=== PATIENT | female | born 1955 | race Caucasian/White ===

== ENCOUNTER → 2018-10-05 12:03 | Outpatient (CLI) | payer OTHER, SELFPAY ==
--- NOTE | 2018-10-05 | DI.MG.S_ITS ---
BILATERAL DIGITAL SCREENING MAMMOGRAM 3D/2D WITH CAD: 10/05/2018 CLINICAL: Routine screening. Family history of breast cancer. Comparison is made to exams dated: 07/24/2017 mammogram, 07/01/2013 mammogram, and 04/25/2007 mammogram - [facility]. There are scattered fibroglandular elements in both breasts. Current study was also evaluated with a Computer Aided Detection (CAD) system. No significant masses, calcifications, or other findings are seen in either breast. There has been no significant interval change. IMPRESSION: NEGATIVE There is no mammographic evidence of malignancy. A 1 year screening mammogram is recommended. This exam was interpreted at Station ID: [id number]. NOTE: For mammograms, a report in lay terms will be sent to the patient. Approximately 15% of breast malignancies will not be visualized mammographically. In the management of a palpable breast mass, a negative mammogram must not discourage biopsy of a clinically suspicious lesion. Electronically Signed By: Brigido manuel/manish:10/07/2018 17:56:22 letter sent: Normal Exam ACR BI-RADS Category 1: Negative 3341F
== END ==
PROVIDERS: PCP Family Medicine; Visit Provider Family Medicine
DX: Z12.31 Encounter for screening mammogram for malignant neoplasm of breast (principal); Z80.3 Family history of malignant neoplasm of breast
CPT/HCPCS: 77063; 77067

== ENCOUNTER → 2020-07-31 11:22 | Outpatient (CLI) | payer OTHER, SELFPAY ==
[2020-07-31 12:20] LABS: Alanine Aminotransferase 13 IU/L (<35); Albumin 4.2 g/dL (3.5-5.0); Albumin Globulin Ratio 1.4 (1.0-2.8); Alkaline Phosphatase 77 U/L (38-126); Aspartate Aminotransferase 24 IU/L (14-36); BUN Creatinine Ratio 20.7 (6-22); Blood Urea Nitrogen 18 mg/dL (7-17); Carbon Dioxide 31 mmol/L (22-32); Chloride 104 mmol/L (98-107); Cholesterol 267 mg/dL (140-199); Estimated Glomerular Filt Rate > 60.0 mL/min (>60); Globulin 2.9 g/dL (1.7-4.1); Glucose 102 mg/dL (80-110); HDL Cholesterol 58 mg/dL (40-60); HEMOLYSIS < 15 (0-50); LDL Cholesterol Calculated 172 mg/dL (<100); Sodium 140 mmol/L (137-145); Total Protein 7.1 g/dL (6.3-8.2); Triglycerides 185 mg/dL (35-150)
[2020-07-31 12:51] LABS: TSH w/ Reflex to FT4 1.95 uIU/mL (0.47-4.68)
== END ==
PROVIDERS: PCP Family Medicine; Referring Provider Family Medicine; Visit Provider Family Medicine
DX: E03.9 Hypothyroidism, unspecified (principal); E78.5 Hyperlipidemia, unspecified
CPT/HCPCS: 36415; 80053; 80061; 84443

== ENCOUNTER → 2020-08-06 14:50 | Outpatient (CLI) | payer OTHER, SELFPAY ==
[2020-08-09 08:24] LABS: Fecal Immunochemical Test Negative (Negative)
== END ==
PROVIDERS: PCP Family Medicine; Referring Provider Family Medicine; Visit Provider Family Medicine
DX: Z12.11 Encounter for screening for malignant neoplasm of colon (principal)
CPT/HCPCS: 82274

== ENCOUNTER → 2020-08-26 11:06 | Outpatient (CLI) | payer OTHER, SELFPAY ==
--- NOTE | 2020-08-26 11:07 | DI.US.S_ITS ---
PROCEDURE: US PELVIC COMPLETE INDICATIONS: Fibroids TECHNIQUE: Real-time scanning was performed of the pelvic organs, with image documentation. Additional endovaginal scanning was necessary due to incomplete visualization of the adnexal and endometrial structures by transabdominal scanning. COMPARISON: None. FINDINGS: Transabdominal scanning: Limited scanning through the kidneys shows no hydronephrosis. No pathologic free abdominal or pelvic fluid. Endovaginal scanning: Uterus: Uterus is normal in size at 6.2 x 7.1 x 11.3 cm. The endometrium measures 6.1 mm in combined thickness. There is a left-sided anterior subserosal fibroid measuring up to 5.4 x 6.6 x 7.5 cm. Ovaries: The right ovary measures 2.1 x 1.7 x 1.9 cm and the left measures 3.4 x 2.4 x 2.2 cm. IMPRESSION: Normal appearing endometrial lining and ovaries. A dominant fibroid is present on the left in the subserosal position measuring up to 5.4 x 6.6 x 7.5 cm. Dictated by: Kam Jang M.D. on 08/26/2020 at 13:09 Approved by: Kam Jang M.D. on 08/26/2020 at 13:11
== END ==
PROVIDERS: PCP Family Medicine; Referring Provider Family Medicine; Visit Provider Family Medicine
DX: D25.2 Subserosal leiomyoma of uterus (principal)
CPT/HCPCS: 76830; 76856

== ENCOUNTER → 2020-09-10 14:58 | Outpatient (CLI) | payer OTHER, SELFPAY ==
--- NOTE | 2020-09-10 14:59 | DI.MG.S_ITS ---
BILATERAL DIGITAL SCREENING MAMMOGRAM 3D/2D WITH CAD: 09/10/2020 CLINICAL: Routine screening. Comparison is made to exams dated: 10/05/2018 mammogram, 07/24/2017 mammogram, and 07/01/2013 mammogram - [facility]. There are scattered fibroglandular elements in both breasts. Current study was also evaluated with a Computer Aided Detection (CAD) system. No significant masses, calcifications, or other findings are seen in either breast. There has been no significant interval change. IMPRESSION: NEGATIVE There is no mammographic evidence of malignancy. A 1 year screening mammogram is recommended. This exam was interpreted at Station ID: [id number]. NOTE: For mammograms, a report in lay terms will be sent to the patient. Approximately 15% of breast malignancies will not be visualized mammographically. In the management of a palpable breast mass, a negative mammogram must not discourage biopsy of a clinically suspicious lesion. Electronically Signed By: Yudy yoon/manish:09/14/2020 16:20:02 letter sent: Normal Exam ACR BI-RADS Category 1: Negative 3341F
== END ==
PROVIDERS: PCP Family Medicine; Referring Provider Family Medicine; Visit Provider Family Medicine
DX: Z12.31 Encounter for screening mammogram for malignant neoplasm of breast (principal)
CPT/HCPCS: 77063; 77067

== ENCOUNTER → 2020-12-09 14:00 | Outpatient (CLI) | payer OTHER, SELFPAY ==
[2020-12-09 14:47] LABS: Alanine Aminotransferase 16 IU/L (<35); Albumin 4.3 g/dL (3.5-5.0); Albumin Globulin Ratio 1.5 (1.0-2.8); Alkaline Phosphatase 88 U/L (38-126); Aspartate Aminotransferase 29 IU/L (14-36); BUN Creatinine Ratio 18.4 (6-22); Bilirubin Total 0.9 mg/dL (0.2-1.3); Blood Urea Nitrogen 14 mg/dL (7-17); Calcium 9.3 mg/dL (8.4-10.2); Carbon Dioxide 32 mmol/L (22-32); Chloride 104 mmol/L (98-107); Cholesterol 250 mg/dL (140-199); Estimated Glomerular Filt Rate > 60.0 mL/min (>60); Globulin 2.9 g/dL (1.7-4.1); Glucose 94 mg/dL (80-110); HDL Cholesterol 57 mg/dL (40-60); HEMOLYSIS < 15 (0-50); LDL Cholesterol Calculated 176 mg/dL (<100); Potassium 4.1 mmol/L (3.4-5.1); Sodium 139 mmol/L (137-145); Total Protein 7.2 g/dL (6.3-8.2); Triglycerides 84 mg/dL (35-150)
[2020-12-09 15:36] LABS: Vitamin B12 Reflex MMA if <400 715 pg/mL (239-931)
[2020-12-09 16:18] LABS: TSH w/ Reflex to FT4 1.38 uIU/mL (0.47-4.68)
== END ==
PROVIDERS: PCP Family Medicine; Referring Provider Family Medicine; Visit Provider Family Medicine
DX: R26.9 Unspecified abnormalities of gait and mobility (principal); E78.5 Hyperlipidemia, unspecified; R73.01 Impaired fasting glucose
CPT/HCPCS: 36415; 80053; 80061; 82607; 84443

== ENCOUNTER → 2020-12-22 13:43 | Outpatient (CLI) | payer OTHER, SELFPAY ==
[2020-12-22] MEDS: COVID-19 VACC, Ad26(JANSSEN)/PF 0.5 ML IM (13:47)
== END ==
PROVIDERS: PCP Family Medicine; Visit Provider Internal Medicine
DX: Z23 Encounter for immunization (principal)
CPT/HCPCS: 0031A; 91303

== ENCOUNTER → 2021-04-25 13:53 | Outpatient (CLI) | payer OTHER, SELFPAY | PROVIDERS: PCP Family Medicine; Visit Provider Physician Assistant | DX: R30.0 Dysuria (principal) | CPT/HCPCS: 87086 ==

== ENCOUNTER → 2021-05-24 13:30 | Outpatient (CLI) | payer OTHER, SELFPAY ==
--- NOTE | 2021-05-24 13:34 | DI.RAD.S_ITS ---
PROCEDURE: XR LUMBAR SPINE MIN 4V INDICATIONS: BACK PAIN TECHNIQUE: 5 views of the lumbar spine acquired, including flexion and extension views. COMPARISON: [facility], [place], SPINE LUMB MIN 4VW, 12/21/2015, 16:44. FINDINGS: Bones: 5 nonrib-bearing vertebrae are present. Trace multilevel retrolisthesis. Multilevel disc degeneration, severe at the L5-S1 level. Moderate L4-L5 and L5-S1 facet joint arthropathy. No vertebral body compression fractures. No suspicious bony lesions. Soft tissues: Overlying bowel gas pattern is normal. No suspicious soft tissue calcifications. IMPRESSION: Multilevel spondylosis, most notably with severe disc degeneration at the L5-S1 level. Dictated by: Atilio Arambula [facility] Interpreted: Will Epperson MD on 05/24/2021 at 14:02 Transcribed by: KERRI on 05/24/2021 at 14:03 Approved by: Will Epperson M.D. on 05/24/2021 at 15:05
== END ==
PROVIDERS: PCP Family Medicine; Referring Provider Physical Medicine & Rehabilitation; Visit Provider Physical Medicine & Rehabilitation
DX: M47.816 Spondylosis without myelopathy or radiculopathy, lumbar region (principal); M47.817 Spondylosis without myelopathy or radiculopathy, lumbosacral region; M48.061 Spinal stenosis, lumbar region without neurogenic claudication; M51.37 Other intervertebral disc degeneration, lumbosacral region
CPT/HCPCS: 72110

== ENCOUNTER → 2021-06-09 11:43 | Outpatient (CLI) | payer OTHER, SELFPAY ==
[2021-06-09 12:42] LABS: BUN Creatinine Ratio 18.6 (6-22); Blood Urea Nitrogen 16 mg/dL (7-17); Calcium 9.4 mg/dL (8.4-10.2); Carbon Dioxide 28 mmol/L (22-32); Chloride 107 mmol/L (98-107); Cholesterol 240 mg/dL (140-199); Estimated Glomerular Filt Rate > 60.0 mL/min (>60); Glucose 98 mg/dL (80-110); HDL Cholesterol 63 mg/dL (40-60); HEMOLYSIS < 15 (0-50); LDL Cholesterol Calculated 164 mg/dL (<100); Potassium 3.8 mmol/L (3.4-5.1); Sodium 140 mmol/L (137-145); Triglycerides 64 mg/dL (35-150)
== END ==
PROVIDERS: PCP Family Medicine; Referring Provider Family Medicine; Visit Provider Family Medicine
DX: E66.3 Overweight (principal); E78.2 Mixed hyperlipidemia; R73.01 Impaired fasting glucose
CPT/HCPCS: 36415; 80048; 80061

== ENCOUNTER 2021-06-22 11:39 | Observation (INO) | payer OTHER, SELFPAY ==
[2021-06-22] VITALS (33 sets, daily range): BP systolic 142–209; BP diastolic 71–104; PULSE 60–84; RESP 11–32; TEMP 36.1–36.8; O2SAT 89–100; BMI 24.6; BMI 24.7
--- NOTE | 2021-06-22 12:01 | PC.NURSE ---
No focal neuro deficits appreciated. pt states last night at 1930 she had a brief episode of slurred speech that resolved. states 1 year ago had gait abnormality that had also resolved. takes ASA but not regularly. no other anticoags.
--- NOTE | 2021-06-22 12:05 | DI.RAD.S_ITS ---
PROCEDURE: XR CHEST 1V INDICATIONS: Possible stroke TECHNIQUE: One view of the chest was acquired. COMPARISON: [facility], , CHEST 2 VIEW, 12/18/2008, 10:39. FINDINGS: Surgical changes and devices: None. Lungs and pleura: Lungs are clear. No pleural effusions or pneumothorax. Mediastinum: Mediastinal contours appear normal. Heart size is normal. Bones and chest wall: No suspicious bony lesions. Overlying soft tissues appear unremarkable. IMPRESSION: No acute cardiopulmonary disease process. Dictated by: Aviva Mitchell MD, PhD on 06/22/2021 at 12:25 Approved by: Aviva Mitchell MD, PhD on 06/22/2021 at 12:26
--- NOTE | 2021-06-22 12:06 | DI.CT.S_ITS ---
PROCEDURE: CT HEAD/BRAIN WO CON INDICATIONS: slurred speech TECHNIQUE: Noncontrast 4.5 mm thick angled axial sections acquired from the foramen magnum to the vertex, with coronal and sagittal reformats. For radiation dose reduction, the following was used: automated exposure control, adjustment of mA and/or kV according to patient size. COMPARISON: None. FINDINGS: Image quality: Excellent. CSF spaces: Basal cisterns are patent. No extra-axial fluid collections. The ventricles are symmetric in size and shape. Brain: No intracranial bleeds or masses. There is cerebral volume loss for age, with resultant ventricular and sulcal prominence. There are periventricular and deep white matter chronic small vessel ischemic changes. There is intracranial internal carotid artery atherosclerosis. Skull and face: Calvarium and visualized facial bones appear intact, without suspicious lesions. Sinuses: Visualized sinuses and mastoids are clear. IMPRESSION: No acute intracranial disease process. Dictated by: Aviva Mitchell MD, PhD on 06/22/2021 at 12:27 Approved by: Aviva Mitchell MD, PhD on 06/22/2021 at 12:33
[2021-06-22 12:19] LABS: Add Manual Diff / Slide Review NO; Basophils Absolute Auto 100 /uL (0-100); Basophils Percent Auto 1.4 % (0-2); Eosinophils Absolute Auto 200 /uL (0-450); Eosinophils Percent Auto 3.6 % (2-4); Hematocrit 42.9 % (36-46); Hemoglobin 14.1 g/dL (12.0-16.0); Lymphocytes Absolute Auto 1600 /uL (1100-4500); Lymphocytes Percent Auto 31.5 % (25-40); Mean Corpuscular HGB Conc 32.8 % (30-36); Mean Corpuscular Hemoglobin 29.4 PG (26-34); Mean Corpuscular Volume 89.5 fL (80-100); Monocytes Absolute Auto 500 /uL (0-900); Monocytes Percent Auto 9.8 % (3-14); Neutrophils Absolute Auto 2700 /uL (1500-7000); Neutrophils Percent Auto 53.7 % (50-75); Platelet Count 227 X10^3/uL (150-400); Red Blood Cell Count 4.79 X10^6/uL (4.0-5.2); White Blood Cell Count 5.1 X10^3/uL (4.5-11.0)
[2021-06-22 12:25] LABS: Alanine Aminotransferase 12 IU/L (<35); Albumin 4.3 g/dL (3.5-5.0); Albumin Globulin Ratio 1.6 (1.0-2.8); Alkaline Phosphatase 77 U/L (38-126); Aspartate Aminotransferase 26 IU/L (14-36); Bilirubin Total 0.7 mg/dL (0.2-1.3); Blood Urea Nitrogen 15 mg/dL (7-17); Calcium 8.9 mg/dL (8.4-10.2); Carbon Dioxide 28 mmol/L (22-32); Chloride 108 mmol/L (98-107); Creatine Kinase 140 U/L (30-135); Estimated Glomerular Filt Rate > 60.0 mL/min (>60); Globulin 2.7 g/dL (1.7-4.1); Glucose 97 mg/dL (80-110); HEMOLYSIS < 15 (0-50); Potassium 4.4 mmol/L (3.4-5.1); Sodium 141 mmol/L (137-145)
[2021-06-22 12:36] LABS: Troponin I < 0.012 ng/mL (0.01-0.034)
[2021-06-22 12:40] LABS: CKMB % Relative Index 0.7 % (1.5-5.0); Creatine Kinase MB 1.03 ng/mL (<2.37)
--- NOTE | 2021-06-22 13:45 | DI.CT.S_ITS ---
PROCEDURE: CT ANGIO HEAD AND NECK INDICATIONS: Transient speech disturbance, unilateral weakness TECHNIQUE: After the administration of intravenous contrast, 1 mm thick sections acquired from the aortic arch through the [place] of [place]. Post-contrast 4.5 mm thick sections then re-acquired from the foramen magnum to the vertex COMPARISON: None. FINDINGS: Cerebral CT Angiogram: Internal carotid arteries: Calcified and noncalcified atherosclerotic plaque in the cavernous segments of both internal carotid arteries results in moderate stenosis on the right. Anterior cerebral arteries: Unremarkable. No significant stenosis. No occlusion. No aneurysm. Middle cerebral arteries: Unremarkable. No significant stenosis. No occlusion. No aneurysm. Posterior cerebral arteries: Hypoplasia/aplasia of the left P1 [employer]CH[employer]INEER noted. The P2 segment is supplied by a widely patent posterior communicating artery. Remainder of the distal vasculature unremarkable. Right EXCHANGE ENGINEER unremarkable Basilar artery: Unremarkable. No significant stenosis. No occlusion. No aneurysm. Vertebral arteries: Unremarkable as visualized. Dural venous sinuses: Unremarkable given phase of enhancement. Other: Arterial phase brain parenchyma is unremarkable. Neck CT Angiogram: Internal carotid arteries: Unremarkable. No significant stenosis. No dissection or occlusion. Common carotid arteries: Unremarkable. No significant stenosis. No dissection or occlusion. External carotid arteries: Unremarkable. No occlusion. Vertebral arteries: Left vertebral artery dominance. Otherwise unremarkable. Other: Multilevel degenerative disc disease and arthropathy noted with facet ankylosis on the left at C3-4 Aortic Arch and Mediastinum: Partially visualized aortic arch unremarkable without evidence of aneurysm. Origins of the great vessels unremarkable. IMPRESSION: 1. No evidence of large vessel occlusion, aneurysm or vascular malformation 2. Calcified and noncalcified atherosclerotic plaque results in moderate cavernous right ICA stenosis Any quantitative measurements of stenosis were performed using NASCET criteria. Approved by: Jin Beck M.D. on 06/22/2021 at 13:21
--- NOTE | 2021-06-22 13:47 | ED.NEUROSD ---
HPI - Neuro Symptoms/Deficit <Tyesha Lambert PA-C - Last Filed: 06/22/21 16:13> General Chief Complaint: Neuro Symptoms/Deficit Stated Complaint: High blood pressure, slurred speech episode Time Seen by Provider: 06/22/21 12:34 Source: patient Mode of arrival: Ambulatory History of Present Illness HPI Narrative: 65-year-old female with a history of hyperlipidemia, anxiety, foraminal stenosis of the lumbar region, gait disorder presents to the ED status post 2 transient episodes of speech slurring and focal left arm weakness. Patient reports that she had a transient episode of left-sided hand numbness, weakness 4 days prior to arrival, along with some speech slurring. Also endorses some tingling in her lips. Patient called EMT who evaluated her, were not concerned for a stroke, patient did not come to the ED. patient reports that she had a repeat episode of the speech slurring last night that lasted just under a minute. Denies any focal weakness or tingling yesterday. Patient also endorses a 0.5/10 headache prior to the speech slurring yesterday. Patient denies fever, chills, chest pain, shortness of breath, nausea, vomiting, abdominal pain, dysuria, lightheadedness, dizziness, syncope, gait disturbance. Patient states pressure was elevated 4 days ago. Patient denies history of hypertension, does not take any medications for it. Patient came in to her PCP office this morning, was sent to the ED on account of elevated systolic blood pressures in the 180s. Patient denies any neurologic symptoms in the ED. patient endorses that she has a gait problem for a year that is being followed by Neurology, etiology yet unknown. On Anticoagulants: No Related Data Previous Rx's Medication Instructions Recorded valacyclovir 500 mg tablet 1,000 mg PO PRN #30 tab 05/03/18 estradiol 10 mcg vaginal tablet 10 mcg VAG .COMPLEX #60 tab 01/19/20 (Yuvafem) Allergies Allergy/AdvReac Type Severity Reaction Status Date / Time levofloxacin [LEVOFLOXACIN] AdvReac Intermediate BAD DREAMS Verified 06/22/21 11:49 AND JOINT PAIN narcotics AdvReac Severe vertigo, Uncoded 06/22/21 11:49 nausea, vomiting Review of Systems <Tyesha Lambert PA-C - Last Filed: 06/22/21 16:13> Constitutional Constitutional: Denies chills, Denies fatigue, Denies fever(s), Denies frequent falls, Denies lethargy and Denies weakness Eyes Eyes: Denies change in vision, Denies eye discharge, Denies irritation and Denies loss of vision ENT Ears, Nose, Mouth, and Throat: Denies change in voice, Denies dizziness, Denies neck pain, Denies sore throat and Denies throat swelling Cardiovascular Cardiovascular: Denies chest pain, Denies irregular heart rhythm, Denies lightheadedness, Denies palpitations, Denies dyspnea, Denies dyspnea on exertion and Denies orthopnea Respiratory Respiratory: Denies cough, Denies dyspnea, Denies dyspnea on exertion and Denies wheezing Gastrointestinal Gastrointestinal: Denies abdominal pain, Denies change in bowel habits, Denies diarrhea, Denies nausea and Denies vomiting Musculoskeletal Musculoskeletal: Denies neck pain and Denies numbness Integumentary/Breasts Skin/Breast: Denies pruritus, Denies erythema, Denies rash and Denies wounds Neurologic Neurologic: Denies behavioral changes, Denies confusion, Denies dizziness, Denies frequent falls, Denies loss of vision, Denies numbness and Denies weakness Comments: Transient left hand weakness, speech slurring Psychiatric Psychiatric: Denies anxiety, Denies behavioral changes, Denies confusion, Denies depression, Denies homicidal ideation and Denies suicidal ideation Endocrine Endocrine: Denies fatigue, Denies flushing and Denies palpitations Hematologic/Lymphatic Hematologic/Lymphatic: Denies easy bruising On Anticoagulants: No Allergic/Immunologic Allergic/Immunologic: Denies urticaria, Denies throat swelling and Denies wheezing Patient History <Tyesha Lambert PA-C - Last Filed: 06/22/21 16:13> Medical History Cardiac arrhythmia (~2013) Chickenpox Diarrhea (05/04/16) Dyspareunia (07/25/12) Eczema (~2011) Facet arthropathy, lumbar Fibroids Foot pain (~2015) Foraminal stenosis of lumbar region History of endometrial biopsy (~2012) Hormone replacement therapy HSV (herpes simplex virus) infection (~1977) Impaired fasting glucose Lumbosacral spondylosis Mumps Overweight Tinnitus Surgical History Anesthesia Status post delivery (03/15/98) Family History Father Age: 85 Heart disease Dementia Hx of CABG Grandmother No problems noted. Grandmother No problems noted. Social History Smoking Status: Never smoker Smoking Status: Never smoker alcohol intake frequency: a few times a week Substance Use Type: does not use Exam <Tyesha Lambert PA-C - Last Filed: 06/22/21 16:13> Initial Vital Signs Initial Vital Signs: Vital Signs Pulse Oximetry 89 L 06/22/21 11:46 Const General: cooperative HENMT Head: normocephalic and atraumatic Ears: external ears normal and TM's normal bilaterally Nose: external nose normal and No nasal discharge Face and sinus: sinuses nontender, face symmetric, no sinus tenderness and No dry mucous membranes Mouth: oral mucosae normal and moist mucous membranes Teeth and gingiva: dentition normal Throat: tonsils normal and uvula midline Eyes General: appearance normal, both eyes and all related structures Eyelids: eyelids normal Conjunctivae: conjunctivae normal Sclera: sclerae normal Pupils: PERRL EOM: EOM intact bilaterally Neck Neck: normal visual inspection, trachea midline, No lymphadenopathy, No midline deformity and No JVD Lymphatic: No lymphedema Chest Chest: normal inspection of the chest Resp Effort & Inspection: normal respiratory effort, able to speak in complete sentences, no respiratory distress and no use of accessory muscles Auscultation: clear to auscultation bilaterally, no rales, no rhonchi and no wheezes Cardio Rate: regular rate Rhythm: regular rhythm Heart Sounds: no click, no gallops, no murmurs and no rubs Pulses: normal peripheral pulses GI Inspection: non-distended Palpation: soft, no hepatosplenomegaly, No guarding, No pulsatile mass and No tender Auscultation: normal bowel sounds Back/Spine/Pelvis Back: No CVA tenderness Cervical Spine: cervical ROM normal and No pain with cervical ROM Thoracic/Lumbar Spine: thoracic and lumbar spine normal to inspection Skin General: no rashes or lesions noted, No jaundice and No petechiae Neuro General: patient alert, patient oriented x3, gait normal and no focal motor deficits Speech: speech normal Other: PERRLA, CN 1-12 intact, strength and sensation intact, neurovascularly intact. Gait normal. Negative finger to nose, rapid alternating movements, pronator drift. Extrem General: full ROM, no clubbing, cyanosis or edema, no pedal edema and no calf tenderness Psych Appearance: well kempt Mental Status: mental status grossly normal Attitude: cooperative Thought Content: normal and suicidality Judgment: judgment good <Araceli Agustin MD - Last Filed: 06/22/21 18:09> Initial Vital Signs Initial Vital Signs: Vital Signs Pulse Oximetry 89 L 06/22/21 11:46 Scores <Tyesha Lambert PA-C - Last Filed: 06/22/21 16:13> ABCD2 Age >= 60 years: yes Initial BP. Either SBP >= 140 or DBP >= 90.: yes Clinical features of the TIA: unilateral weakness Duration of symptoms: < 10 minutes History of diabetes: no ABCD2 Score: 4 <Araceli Agustin MD - Last Filed: 06/22/21 18:09> ABCD2 ABCD2 Score: 4 Course <Tyesha Lambert PA-C - Last Filed: 06/22/21 16:13> Course Course Narrative: Patient's systolic blood pressure elevated to 209 in the ED, will give labetalol. No signs of end-organ dysfunction. CXR, CTH, CTA neg for acute processes. Labs WNL. SBP improved to 160 with 20mg labetolol. Orders Ordered: ED Orders 06/22/21 11:50 Complete Blood Count AUTO DIFF Stat Comprehensive Metabolic Panel Stat Troponin & CK Cardiac Panel Stat 06/22/21 12:05 XR chest 1V Stat EKG-12 Lead Stat 06/22/21 12:06 CT head/brain wo con Stat 06/22/21 13:45 CT angio head and neck Stat 06/22/21 14:27 Urine Culture Stat Urine Microscopic Stat Acetaminophen (Acetaminophen 325 Mg Tablet) 650 mg PO Q6HR PRN PRN Reason: Fever/Mild Pain (1-3) Aspirin (Aspirin Ec 81 Mg Tablet) 81 mg PO DAILY NILSA Atorvastatin Calcium (Atorvastatin 20 Mg Tablet) 80 mg PO BEDTIME NILSA Enoxaparin Sodium (Enoxaparin 40 Mg/0.4 Ml Syringe) 40 mg SUBCUT DAILY NILSA Discontinued Medications Labetalol HCl (Labetalol 20 Mg/4 Ml Syringe) 20 mg IV NOW ONE Stop: 06/22/21 14:18 Last Admin: 06/22/21 14:32 Dose: 20 mg Documented by: AHMET Labetalol HCl (Labetalol 20 Mg/4 Ml Syringe) 20 mg IV NOW ONE Stop: 06/22/21 16:14 Last Admin: 06/22/21 16:19 Dose: 20 mg Documented by: TRACEE Vital Signs Vital signs: Vital Signs - 8 hr 06/22/21 11:46 06/22/21 11:47 06/22/21 12:00 Temperature 98.2 F Pulse Rate 81 71 Respiratory Rate 12 16 Blood Pressure 177/85 H Pulse Oximetry 89 L 97 98 06/22/21 12:04 06/22/21 12:05 06/22/21 12:23 Temperature Pulse Rate 70 69 66 Respiratory Rate 17 14 16 Blood Pressure 185/89 H 167/83 H 171/88 H Pulse Oximetry 99 98 99 06/22/21 12:30 06/22/21 13:00 06/22/21 13:30 Temperature Pulse Rate 62 60 73 Respiratory Rate 16 Blood Pressure 176/88 H 175/79 H 187/90 H Pulse Oximetry 99 97 99 06/22/21 13:39 06/22/21 13:44 06/22/21 13:45 Temperature Pulse Rate 71 68 67 Respiratory Rate 15 18 16 Blood Pressure 177/104 H 184/99 H 184/96 H Pulse Oximetry 98 99 100 06/22/21 14:03 06/22/21 14:12 06/22/21 14:14 Temperature Pulse Rate 72 72 69 Respiratory Rate 22 24 19 Blood Pressure 209/92 H 187/83 H Pulse Oximetry 100 100 100 06/22/21 14:30 06/22/21 14:32 06/22/21 14:35 Temperature Pulse Rate 74 73 73 Respiratory Rate 15 18 Blood Pressure 187/83 H 184/88 H Pulse Oximetry 100 98 06/22/21 14:47 06/22/21 15:00 06/22/21 15:30 Temperature Pulse Rate 75 72 71 Respiratory Rate 21 17 Blood Pressure 168/81 H 168/81 H Pulse Oximetry 98 97 97 06/22/21 16:00 06/22/21 16:04 06/22/21 16:19 Temperature Pulse Rate 69 69 76 Respiratory Rate 17 17 Blood Pressure 183/86 H 188/89 H Pulse Oximetry 98 98 06/22/21 16:23 06/22/21 16:27 06/22/21 16:30 Temperature Pulse Rate 79 79 84 Respiratory Rate 11 L 19 32 H Blood Pressure 203/91 H 187/79 H Pulse Oximetry 98 99 99 06/22/21 16:31 Temperature Pulse Rate Respiratory Rate Blood Pressure 165/100 H Pulse Oximetry <Araceli Agustin MD - Last Filed: 06/22/21 18:09> Orders Ordered: ED Orders 06/22/21 11:50 Complete Blood Count AUTO DIFF Stat Comprehensive Metabolic Panel Stat Troponin & CK Cardiac Panel Stat 06/22/21 12:05 XR chest 1V Stat EKG-12 Lead Stat 06/22/21 12:06 CT head/brain wo con Stat 06/22/21 13:45 CT angio head and neck Stat 06/22/21 14:27 Urine Culture Stat Urine Microscopic Stat Acetaminophen (Acetaminophen 325 Mg Tablet) 650 mg PO Q6HR PRN PRN Reason: Fever/Mild Pain (1-3) Aspirin (Aspirin Ec 81 Mg Tablet) 81 mg PO DAILY NILSA Atorvastatin Calcium (Atorvastatin 20 Mg Tablet) 80 mg PO BEDTIME NILSA Enoxaparin Sodium (Enoxaparin 40 Mg/0.4 Ml Syringe) 40 mg SUBCUT DAILY NILSA Discontinued Medications Labetalol HCl (Labetalol 20 Mg/4 Ml Syringe) 20 mg IV NOW ONE Stop: 06/22/21 14:18 Last Admin: 06/22/21 14:32 Dose: 20 mg Documented by: AHMET Labetalol HCl (Labetalol 20 Mg/4 Ml Syringe) 20 mg IV NOW ONE Stop: 06/22/21 16:14 Last Admin: 06/22/21 16:19 Dose: 20 mg Documented by: TRACEE Vital Signs Vital signs: Vital Signs - 8 hr 06/22/21 11:46 06/22/21 11:47 06/22/21 12:00 Temperature 98.2 F Pulse Rate 81 71 Respiratory Rate 12 16 Blood Pressure 177/85 H Pulse Oximetry 89 L 97 98 06/22/21 12:04 06/22/21 12:05 06/22/21 12:23 Temperature Pulse Rate 70 69 66 Respiratory Rate 17 14 16 Blood Pressure 185/89 H 167/83 H 171/88 H Pulse Oximetry 99 98 99 06/22/21 12:30 06/22/21 13:00 06/22/21 13:30 Temperature Pulse Rate 62 60 73 Respiratory Rate 16 Blood Pressure 176/88 H 175/79 H 187/90 H Pulse Oximetry 99 97 99 06/22/21 13:39 06/22/21 13:44 06/22/21 13:45 Temperature Pulse Rate 71 68 67 Respiratory Rate 15 18 16 Blood Pressure 177/104 H 184/99 H 184/96 H Pulse Oximetry 98 99 100 06/22/21 14:03 06/22/21 14:12 06/22/21 14:14 Temperature Pulse Rate 72 72 69 Respiratory Rate 22 24 19 Blood Pressure 209/92 H 187/83 H Pulse Oximetry 100 100 100 06/22/21 14:30 06/22/21 14:32 06/22/21 14:35 Temperature Pulse Rate 74 73 73 Respiratory Rate 15 18 Blood Pressure 187/83 H 184/88 H Pulse Oximetry 100 98 06/22/21 14:47 06/22/21 15:00 06/22/21 15:30 Temperature Pulse Rate 75 72 71 Respiratory Rate 21 17 Blood Pressure 168/81 H 168/81 H Pulse Oximetry 98 97 97 06/22/21 16:00 06/22/21 16:04 06/22/21 16:19 Temperature Pulse Rate 69 69 76 Respiratory Rate 17 17 Blood Pressure 183/86 H 188/89 H Pulse Oximetry 98 98 06/22/21 16:23 06/22/21 16:27 06/22/21 16:30 Temperature Pulse Rate 79 79 84 Respiratory Rate 11 L 19 32 H Blood Pressure 203/91 H 187/79 H Pulse Oximetry 98 99 99 06/22/21 16:31 Temperature Pulse Rate Respiratory Rate Blood Pressure 165/100 H Pulse Oximetry MDM - Neuro Symptoms/Deficit <Tyesha Lambert PA-C - Last Filed: 06/22/21 16:13> Lab Data Lab results narrative: Labs within normal limits. Result diagrams: 06/22/21 11:50 06/22/21 11:50 Labs: Lab Results 06/22/21 06/22/21 06/22/21 Range/Units 11:50 11:50 14:27 WBC 5.1 (4.5-11.0) X10^3/uL RBC 4.79 (4.0-5.2) X10^6/uL Hgb 14.1 (12.0-16.0) g/dL Hct 42.9 (36-46) % MCV 89.5 (80-100) fL MCH 29.4 (26-34) PG MCHC 32.8 (30-36) % RDW 14.0 (11.6-14.8) % Plt Count 227 (150-400) X10^3/uL Neut % (Auto) 53.7 (50-75) % Lymph % (Auto) 31.5 (25-40) % [place] % (Auto) 9.8 (3-14) % Eos % (Auto) 3.6 (2-4) % Baso % (Auto) 1.4 (0-2) % Neut # (Auto) 2700 (8494-6961) /uL Lymph # (Auto) 1600 (4551-8907) /uL [place] # (Auto) 500 (0-900) /uL Eos # (Auto) 200 (0-450) /uL Baso # (Auto) 100 (0-100) /uL Sodium 141 (137-145) mmol/L Potassium 4.4 (3.4-5.1) mmol/L Chloride 108 H (98-107) mmol/L Carbon Dioxide 28 (22-32) mmol/L BUN 15 (7-17) mg/dL Creatinine 0.75 (0.52-1.04) mg/dL Estimated GFR > 60.0 (>60) mL/min BUN/Creatinine Ratio 20.0 (6-22) Glucose 97 (80-110) mg/dL Calcium 8.9 (8.4-10.2) mg/dL Total Bilirubin 0.7 (0.2-1.3) mg/dL AST 26 (14-36) IU/L ALT 12 (<35) IU/L Alkaline Phosphatase 77 (38-126) U/L Total Creatine Kinase 140 H (30-135) U/L CK-MB (CK-2) 1.03 (<2.37) ng/mL CK-MB (CK-2) Rel Index 0.7 L (1.5-5.0) % Troponin I < 0.012 (0.01-0.034) ng/mL Total Protein 7.0 (6.3-8.2) g/dL Albumin 4.3 (3.5-5.0) g/dL Globulin 2.7 (1.7-4.1) g/dL Albumin/Globulin Ratio 1.6 (1.0-2.8) Urine RBC 0-1/hpf (0-5/HPF) Urine WBC 5-10/hpf H (0-5/HPF) Ur Squamous Epith Cells None seen (0-5/HPF) Urine Bacteria Occasional (0-1) (None) Ur Culture Indicated? Specimen cultured Urine Dip Bedside Urine Glucose Negative Bedside Urine Bilirubin - Negative Bedside Urine Ketone - Negative Urine Specific [place] 1.015 Bedside Urine Occult Blood - Negative Bedside Urine pH 6.5 Bedside Urine Protein - Negative Bedside Urine Urobilinogen - Negative Bedside Urine Nitrite - Negative Bedside Urine Leukocytes ++ 125 Esterase Imaging Data Chest x-ray: Radiologist's Impression: PROCEDURE:? XR CHEST 1V ? INDICATIONS:? Possible stroke ? TECHNIQUE:? One view of the chest was acquired.? ? COMPARISON:? [facility], , CHEST 2 VIEW, 12/18/2008, 10:39. ? FINDINGS:? ? Surgical changes and devices:? None.? ? Lungs and pleura:? Lungs are clear.? No pleural effusions or pneumothorax.? ? Mediastinum:? Mediastinal contours appear normal.? Heart size is normal.? ? Bones and chest wall:? No suspicious bony lesions.? Overlying soft tissues appear unremarkable.? ? IMPRESSION:? No acute cardiopulmonary disease process. ? ? Dictated by: Aviva Mitchell MD, PhD on 06/22/2021 at 12:25 ? ? Approved by: Aviva Mitchell MD, PhD on 06/22/2021 at 12:26 ? CT scan - head: Radiologist's Impression: PROCEDURE:? CT HEAD/BRAIN WO CON ? INDICATIONS:? slurred speech ? TECHNIQUE:? Noncontrast 4.5 mm thick angled axial sections acquired from the foramen magnum to the vertex, with coronal and sagittal reformats.? For radiation dose reduction, the following was used:? automated exposure control, adjustment of mA and/or kV according to patient size.? ? COMPARISON:? None. ? FINDINGS:? Image quality:? Excellent.? ? CSF spaces:? Basal cisterns are patent.? No extra-axial fluid collections.? The ventricles are symmetric in size and shape.? ? Brain:? No intracranial bleeds or masses.? There is cerebral volume loss for age, with resultant ventricular and sulcal prominence.? There are periventricular and deep white matter chronic small vessel ischemic changes.? There is intracranial internal carotid artery atherosclerosis.? ? Skull and face:? Calvarium and visualized facial bones appear intact, without suspicious lesions.? ? Sinuses:? Visualized sinuses and mastoids are clear.? ? IMPRESSION:? No acute intracranial disease process. ? ? Dictated by: Aviva Mitchell MD, PhD on 06/22/2021 at 12:27 ? ? Approved by: Aviva Mitchell MD, PhD on 06/22/2021 at 12:33 ? CTA Head and Neck: Radiologist's Impression: PROCEDURE:? CT ANGIO HEAD AND NECK ? INDICATIONS:? Transient speech disturbance, unilateral weakness ? TECHNIQUE: ? After the administration of intravenous contrast, 1 mm thick sections acquired from the aortic arch through the [place].? Post-contrast 4.5 mm thick sections then re-acquired from the foramen magnum to the vertex ? COMPARISON:? None. ? FINDINGS: ? Cerebral CT Angiogram: ? Internal carotid arteries:? Calcified and noncalcified atherosclerotic plaque in the cavernous segments of both internal carotid arteries results in moderate stenosis on the right. Anterior cerebral arteries:? Unremarkable.? No significant stenosis.? No occlusion.? No aneurysm. Middle cerebral arteries:? Unremarkable.? No significant stenosis.? No occlusion.? No aneurysm. Posterior cerebral arteries:? Hypoplasia/aplasia of the left P1 INFORMATION AND REFERRAL DIRECTOR noted. The P2 segment is supplied by a widely patent posterior communicating artery. Remainder of the distal vasculature unremarkable.? Right INFORMATION AND REFERRAL DIRECTOR unremarkable Basilar artery:? Unremarkable.? No significant stenosis.? No occlusion.? No aneurysm. Vertebral arteries:? Unremarkable as visualized. Dural venous sinuses:? Unremarkable given phase of enhancement. Other:? Arterial phase brain parenchyma is unremarkable. ? Neck CT Angiogram: ? Internal carotid arteries:? Unremarkable.? No significant stenosis.? No dissection or occlusion. Common carotid arteries:? Unremarkable.? No significant stenosis.? No dissection or occlusion. External carotid arteries:? Unremarkable.? No occlusion. Vertebral arteries:? Left vertebral artery dominance.? Otherwise unremarkable. Other:? Multilevel degenerative disc disease and arthropathy noted with facet ankylosis on the left at C3-4 ? Aortic Arch and Mediastinum:? Partially visualized aortic arch unremarkable without evidence of aneurysm. Origins of the great vessels unremarkable. ? IMPRESSION: ? 1. No evidence of large vessel occlusion, aneurysm or vascular malformation ? 2. Calcified and noncalcified atherosclerotic plaque results in moderate cavernous right ICA stenosis ? Any quantitative measurements of stenosis were performed using NASCET criteria.? Approved by: Jin Beck M.D. on 06/22/2021 at 13:21? ECG Data Interpretation: NSR, No ST-T changes, left axis deviation. MDM Narrative Medical decision making narrative: 65-year-old female with a history of hyperlipidemia, anxiety, foraminal stenosis of the lumbar region, gait disorder presents to the ED status post 2 transient episodes of speech slurring and focal left arm weakness. Concern for TIA versus CVA versus intracranial hemorrhage versus hypertensive emergency versus hypertensive urgency. Will order labs, EKG, troponin, UA, chest x-ray, CT, CTA. ABCD2 score of 4, moderate risk of stroke. Will admit for further workup. <Araceli Agustin MD - Last Filed: 06/22/21 18:09> Lab Data Labs: Lab Results 06/22/21 06/22/21 06/22/21 Range/Units 11:50 11:50 14:27 WBC 5.1 (4.5-11.0) X10^3/uL RBC 4.79 (4.0-5.2) X10^6/uL Hgb 14.1 (12.0-16.0) g/dL Hct 42.9 (36-46) % MCV 89.5 (80-100) fL MCH 29.4 (26-34) PG MCHC 32.8 (30-36) % RDW 14.0 (11.6-14.8) % Plt Count 227 (150-400) X10^3/uL Neut % (Auto) 53.7 (50-75) % Lymph % (Auto) 31.5 (25-40) % [place] % (Auto) 9.8 (3-14) % Eos % (Auto) 3.6 (2-4) % Baso % (Auto) 1.4 (0-2) % Neut # (Auto) 2700 (5414-9889) /uL Lymph # (Auto) 1600 (6261-4031) /uL [place] # (Auto) 500 (0-900) /uL Eos # (Auto) 200 (0-450) /uL Baso # (Auto) 100 (0-100) /uL Sodium 141 (137-145) mmol/L Potassium 4.4 (3.4-5.1) mmol/L Chloride 108 H (98-107) mmol/L Carbon Dioxide 28 (22-32) mmol/L BUN 15 (7-17) mg/dL Creatinine 0.75 (0.52-1.04) mg/dL Estimated GFR > 60.0 (>60) mL/min BUN/Creatinine Ratio 20.0 (6-22) Glucose 97 (80-110) mg/dL Calcium 8.9 (8.4-10.2) mg/dL Total Bilirubin 0.7 (0.2-1.3) mg/dL AST 26 (14-36) IU/L ALT 12 (<35) IU/L Alkaline Phosphatase 77 (38-126) U/L Total Creatine Kinase 140 H (30-135) U/L CK-MB (CK-2) 1.03 (<2.37) ng/mL CK-MB (CK-2) Rel Index 0.7 L (1.5-5.0) % Troponin I < 0.012 (0.01-0.034) ng/mL Total Protein 7.0 (6.3-8.2) g/dL Albumin 4.3 (3.5-5.0) g/dL Globulin 2.7 (1.7-4.1) g/dL Albumin/Globulin Ratio 1.6 (1.0-2.8) Urine RBC 0-1/hpf (0-5/HPF) Urine WBC 5-10/hpf H (0-5/HPF) Ur Squamous Epith Cells None seen (0-5/HPF) Urine Bacteria Occasional (0-1) (None) Ur Culture Indicated? Specimen cultured Urine Dip Bedside Urine Glucose Negative Bedside Urine Bilirubin - Negative Bedside Urine Ketone - Negative Urine Specific [place] 1.015 Bedside Urine Occult Blood - Negative Bedside Urine pH 6.5 Bedside Urine Protein - Negative Bedside Urine Urobilinogen - Negative Bedside Urine Nitrite - Negative Bedside Urine Leukocytes ++ 125 Esterase Discharge Plan Departure Patient Disposition: Admitted as Observation Clinical Impression: Transient ischemic attack (TIA) Admit Date/Time: 06/22/21 16:42 Admit Provider: Mu Ortiz <Araceli Agustin MD - Last Filed: 06/22/21 18:09> Cosign ED Attending Cosignature Attestation: I was immediately available in the department for consultation throughout this patient's visit. I agree with documentation as above. Araceli Agustin MD
[2021-06-22] MEDS: LABETALOL 20 MG/4 ML SYRINGE IV ×2 (14:32→16:19)
[2021-06-22 14:47] LABS: Bacteria Urine Occasional (0-1); Culture Indicated Urine Specimen Cultured; RBC Urine 0-1/HPF (0-5/HPF); Squamous Epithelial Cell Urine None Seen (0-5/HPF); WBC Urine 5-10/HPF (0-5/HPF)
--- NOTE | 2021-06-22 17:44 | DI.MRI.S_ITS ---
PROCEDURE: MR STROKE Pre- and post-contrast brain MRI, non-contrast brain MR angiogram, pre- and postcontrast neck MR angiogram INDICATIONS: ?CVA TECHNIQUE: Brain: Noncontrast axial T1 spin echo, axial T2 fast spin echo, sagittal and axial FLAIR, coronal T2 fast spin echo, axial gradient echo, axial diffusion and ADC through the brain. After the administration of contrast, axial 3D VIBE of the cranial vasculature and brain. Brain MRA: Non-contrast 3-D time of flight MR angiogram, with multiple jrhuynz-sejnansxt-pzbiutukjn (MIP) reformats performed. Neck MRA: Axial and sagittal TruFISP through the neck. Coronal dynamic MR angiogram during administration of contrast in the arterial and venous phases, with 3-dimenstional pbrvbpx-neduavaok-kiohzjcahi (MIP) reformats constructed from subtraction images. COMPARISON: [facility], CT, CT ANGIO HEAD AND NECK, 06/22/2021, 13:50. [facility], CT, CT HEAD/BRAIN WO CON, 06/22/2021, 12:10. FINDINGS: Image quality: Excellent. BRAIN: The ventricular system and cortical sulci demonstrate atrophy, consistent for the patient's stated age. There are areas of increased T2/FLAIR signal intensity within the periventricular and subcortical white matter. There is no acute intra-or extra axial fluid collection. No acute hemorrhage, mass lesion or midline shift. Brainstem is unremarkable. There are no areas of restricted diffusion. Globes are symmetrical. Sinuses are aerated. Osseous structures are intact. . BRAIN MR ANGIOGRAM: Anterior circulation: Intracranial internal carotid arteries are normal in size and enhancement. The flow within the paired anterior cerebral arteries is normal and symmetric. The flow within the middle cerebral arteries is normal and symmetric. The anterior communicating artery is seen. No stenoses, occlusions, or aneurysms. Posterior circulation: The visualized portions of the vertebral arteries demonstrate normal caliber, and join to form a normal appearing basilar artery. The flow within the posterior cerebral arteries is normal and symmetric. No stenoses, occlusions, or aneurysms. There is slight left vertebral artery dominance. Persistence of circulation within the posterior circulation is noted on the left. NECK MR ANGIOGRAM: Carotids: Great vessels demonstrate a conventional anatomy as they arise from the aortic arch. The origins of the common carotid arteries appear patent. The calibers and courses of both common carotid arteries are normal. The bifurcation regions appear normal bilaterally. The internal carotid arteries demonstrate normal course and caliber. Posterior circulation: The origins of the vertebral arteries appear patent. More superior portions of both vertebral arteries demonstrate normal course and caliber, and join to form a normal appearing basilar artery. Miscellaneous: Subclavian arteries appear patent. Pre-contrast images through the neck show no soft tissue abnormalities. IMPRESSION: 1. No acute intracranial process. 2. Mild atrophy and chronic microvascular ischemic changes. 3. No restricted diffusion changes to indicate acute ischemia. 4. No areas of hemodynamically significant stenosis, vascular occlusion or aneurysmal dilation within the anterior or posterior circulation. 5. No areas of hemodynamically significant stenosis, vascular occlusion or aneurysmal dilation within the neck vasculature. Dictated by: Lisha Gurrola M.D. on 06/22/2021 at 21:20 Approved by: Lisha Gurrola M.D. on 06/22/2021 at 21:23
--- NOTE | 2021-06-22 18:13 | PC.ADMIT ---
[email or web address] [facility] Admission Note: Patient arrived to floor at 17:50 from ER via wheelchair transport. Alert and oriented x 4, talkative, able to make needs known. Patient sitting up in chair, brakes locked, shown how to use call light. The patient,Carey Zuniga,65 y/o, was given written information regarding hospital policies, unit procedures and contact persons. Patient's smoking status: Never smoker. Vital Signs - 8 hr 06/22/21 11:46 06/22/21 11:47 06/22/21 12:00 Temperature 98.2 F Pulse Rate 81 71 Respiratory Rate 12 16 Blood Pressure 177/85 H Pulse Oximetry 89 L 97 98 06/22/21 12:04 06/22/21 12:05 06/22/21 12:23 Temperature Pulse Rate 70 69 66 Respiratory Rate 17 14 16 Blood Pressure 185/89 H 167/83 H 171/88 H Pulse Oximetry 99 98 99 06/22/21 12:30 06/22/21 13:00 06/22/21 13:30 Temperature Pulse Rate 62 60 73 Respiratory Rate 16 Blood Pressure 176/88 H 175/79 H 187/90 H Pulse Oximetry 99 97 99 06/22/21 13:39 06/22/21 13:44 06/22/21 13:45 Temperature Pulse Rate 71 68 67 Respiratory Rate 15 18 16 Blood Pressure 177/104 H 184/99 H 184/96 H Pulse Oximetry 98 99 100 06/22/21 14:03 06/22/21 14:12 06/22/21 14:14 Temperature Pulse Rate 72 72 69 Respiratory Rate 22 24 19 Blood Pressure 209/92 H 187/83 H Pulse Oximetry 100 100 100 06/22/21 14:30 06/22/21 14:32 06/22/21 14:35 Temperature Pulse Rate 74 73 73 Respiratory Rate 15 18 Blood Pressure 187/83 H 184/88 H Pulse Oximetry 100 98 06/22/21 14:47 06/22/21 15:00 06/22/21 15:30 Temperature Pulse Rate 75 72 71 Respiratory Rate 21 17 Blood Pressure 168/81 H 168/81 H Pulse Oximetry 98 97 97 06/22/21 16:00 06/22/21 16:04 06/22/21 16:19 Temperature Pulse Rate 69 69 76 Respiratory Rate 17 17 Blood Pressure 183/86 H 188/89 H Pulse Oximetry 98 98 06/22/21 16:23 06/22/21 16:27 06/22/21 16:30 Temperature Pulse Rate 79 79 84 Respiratory Rate 11 L 19 32 H Blood Pressure 203/91 H 187/79 H Pulse Oximetry 98 99 99 06/22/21 16:31 06/22/21 16:46 06/22/21 17:00 Temperature Pulse Rate 74 73 Respiratory Rate 25 H 16 Blood Pressure 165/100 H 149/97 H 164/90 H Pulse Oximetry 98 98 06/22/21 17:37 06/22/21 18:02 Temperature 96.9 F L Pulse Rate 73 75 Respiratory Rate 18 Blood Pressure 164/90 H 150/96 H Pulse Oximetry 99
--- NOTE | 2021-06-22 18:39 | PC.NURSE ---
Addendum entered by Stephanie Ulloa R.N. 06/22/21 19:46: Patient arrived back to floor at 19:10. Original Note: Patient went for MRI at 18:30 via wheelchair.
--- NOTE | 2021-06-22 19:45 | P.HP_ITS ---
History of Present Illness History of Present Illness Date Patient Seen: 06/22/21 Time Patient Seen: 17:43 Chief complaint: High blood pressure, slurred speech episode Narrative: ?Carey Zuniga is a 65-year-old female with a history of hyperlipidemia, anxiety, foraminal stenosis of the lumbar region, and gait disorder presents to the ED status post 1 transient episodes of speech slurring and focal left arm weakness, left hand/left side of mouth numbness & tingling, and left side mouth droop.? Patient reports that she had this transient episode of left-sided numbness, weakness, slurred speach 4 days prior to arrival, while at rest sitting on her couch eating dinner, when she went to get up and take her plate to the kitchen she had difficulty standing and the plate slid out of her hand, she reports the event lasted 30-40 minutes approximately. Called EMT who evaluated her, were not concerned for a stroke, patient did not come to the ED. Patient reports that she had a repeat episode of the speech slurring last night that lasted just under a minute-witnessed by her neighbor.? Denies any focal weakness or tingling yesterday.? Patient also endorses a 0.5/10 headache prior to the speech slurring yesterday.? Patient denies fever, chills, chest pain, shortness of breath, nausea, vomiting, abdominal pain, dysuria, HANSEN, lightheadedness, dizziness, syncope, or worsening/changes to gait disturbance.? Patient denies worsening balance coordination, difficulty swallowing, impaired dexterity, difficulty or changes to bowel and bladder function. Patient denies history of hypertension, does not take any medications for it.? Patient came in to her PCP office this morning, was sent to the ED on account of elevated systolic blood pressures in the 180s.? Patient denies any neurologic symptoms in the ED. patient endorses that she has a gait problem for a year that is being followed by Neurology, etiology yet unknown. Patient presented to the ED with blood pressures in the 200s/100s, was given 20 mg of labetalol and systolic BP dropped to the 160s. Patient's vitals upon admit temp 96.9?, BP 150/96, HR 75, RR 18, O2 saturation 99% on room air. Patient's CBC, CMP, and liver panel are all within normal limits, patient's troponin within normal limits, UA was cultured in ED, patient had an NIH score: 0 ABCD 2 score: 4, EKG normal sinus rhythm without ST or T- wave changes. Chest x-ray demonstrated no acute cardiopulmonary processes. Head CT demonstrated no acute intracranial processes or disease. Head neck CTA no large vessel occlusion or any other vascular malformations. Patient was found to have calcified and noncalcified atherosclerotic plaque resulting in moderate cavernous right ICA stenosis. Patient admitted for neurological d eficit, TIA versus stroke rule out with elevated blood pressure without the diagnosis of hypertension. Patient History Medical History Cardiac arrhythmia (~2013) Chickenpox Diarrhea (05/04/16) Dyspareunia (07/25/12) Eczema (~2011) Facet arthropathy, lumbar Fibroids Foot pain (~2015) Foraminal stenosis of lumbar region History of endometrial biopsy (~2012) Hormone replacement therapy HSV (herpes simplex virus) infection (~1977) Impaired fasting glucose Lumbosacral spondylosis Mumps Overweight Tinnitus Surgical History Anesthesia Status post delivery (03/15/98) Family & Social History Family History Father Age: 85 Heart disease Dementia Hx of CABG Grandmother No problems noted. Grandmother No problems noted. Social History: household members none Prior Living Arrangements House Safety & Behavioral: Feels Safe in Current Yes Environment Been Physically Hurt or No Threatened By a Person Suicidal Ideation Description None Suicide Plan Description No Plan Tobacco & Substance use: Smoking Status Never smoker alcohol intake frequency a few times a week Substance Use Type does not use Meds Home Medications and Allergies Home Medications Medication Instructions Recorded Confirmed Type valacyclovir 500 mg tablet 1,000 mg PO PRN #30 tab 05/03/18 06/22/21 Rx estradiol 10 mcg vaginal tablet 10 mcg VAG .COMPLEX #60 tab 01/19/20 06/22/21 Rx (Yuvafem) Allergies Allergy/AdvReac Type Severity Reaction Status Date / Time levofloxacin [LEVOFLOXACIN] AdvReac Intermediate BAD DREAMS Verified 06/22/21 11:49 AND JOINT PAIN narcotics AdvReac Severe vertigo, Uncoded 06/22/21 11:49 nausea, vomiting Review of Systems Review of Systems Narrative: All 12 point systems reviewed with the patient and are negative except otherwise documented. Exam Vital Signs (past 8 hours): - 06/22/21 11:46 06/22/21 11:47 06/22/21 12:00 Temperature 98.2 F Pulse Rate 81 71 Respiratory Rate 12 16 Blood Pressure 177/85 H Pulse Oximetry 89 L 97 98 06/22/21 12:04 06/22/21 12:05 06/22/21 12:23 Temperature Pulse Rate 70 69 66 Respiratory Rate 17 14 16 Blood Pressure 185/89 H 167/83 H 171/88 H Pulse Oximetry 99 98 99 06/22/21 12:30 06/22/21 13:00 06/22/21 13:30 Temperature Pulse Rate 62 60 73 Respiratory Rate 16 Blood Pressure 176/88 H 175/79 H 187/90 H Pulse Oximetry 99 97 99 06/22/21 13:39 06/22/21 13:44 06/22/21 13:45 Temperature Pulse Rate 71 68 67 Respiratory Rate 15 18 16 Blood Pressure 177/104 H 184/99 H 184/96 H Pulse Oximetry 98 99 100 06/22/21 14:03 06/22/21 14:12 06/22/21 14:14 Temperature Pulse Rate 72 72 69 Respiratory Rate 22 24 19 Blood Pressure 209/92 H 187/83 H Pulse Oximetry 100 100 100 06/22/21 14:30 06/22/21 14:32 06/22/21 14:35 Temperature Pulse Rate 74 73 73 Respiratory Rate 15 18 Blood Pressure 187/83 H 184/88 H Pulse Oximetry 100 98 06/22/21 14:47 06/22/21 15:00 06/22/21 15:30 Temperature Pulse Rate 75 72 71 Respiratory Rate 21 17 Blood Pressure 168/81 H 168/81 H Pulse Oximetry 98 97 97 06/22/21 16:00 06/22/21 16:04 06/22/21 16:19 Temperature Pulse Rate 69 69 76 Respiratory Rate 17 17 Blood Pressure 183/86 H 188/89 H Pulse Oximetry 98 98 06/22/21 16:23 06/22/21 16:27 06/22/21 16:30 Temperature Pulse Rate 79 79 84 Respiratory Rate 11 L 19 32 H Blood Pressure 203/91 H 187/79 H Pulse Oximetry 98 99 99 06/22/21 16:31 06/22/21 16:46 06/22/21 17:00 Temperature Pulse Rate 74 73 Respiratory Rate 25 H 16 Blood Pressure 165/100 H 149/97 H 164/90 H Pulse Oximetry 98 98 06/22/21 17:37 06/22/21 18:02 Temperature 96.9 F L Pulse Rate 73 75 Respiratory Rate 18 Blood Pressure 164/90 H 150/96 H Pulse Oximetry 99 Oxygen Delivery Method Room Air Narrative Exam Narrative: General: Patient is a well-developed, well-nourished in no distress at this time. HEENT: Normocephalic, atraumatic, extraocular muscles intact, oral pharynx is clear and mucous membranes are moist. Neck is supple and symmetric, trachea is midline, no adenopathy, no thyroid enlargement, nontender, no masses palpated. Negative for JVD Chest: Normal AP diameter and contour without kyphoscoliosis, no nasal flaring, retractions, or tachypneic labored Lungs: Auscultation of all lung michaels are clear without adventitious sounds, wheezes, rhonchi, or rales. Cardio: S1 & S2 with regular rate and rhythm without murmur, rubs, or gallops, no carotid bruit, no cardiac pulsations present. Abdomen: Soft nontender, negative for organomegaly, or masses. Bowel sounds are present in all 4 quadrants without guarding or rebound, no CVA tenderness. Musculoskeletal: Muscle strength and tone are equal within normal limits, no deformity, crepitus, effusions, cyanosis, clubbing or edema present. Full range of motion intact radial and pedal pulses are normal. Skin: Warm dry and intact without rashes, ulcerations or petechiae. Neuro: Alert and orientated x3, strength is +5/5 in all extremities, sensation to touch intact, no gross deficits noted of cranial nerves. Psych: Patient has a well-kept appearance, appropriate affect, mental status attitude thought context and judgment are appropriate for age. Objective Labs Result Diagrams: 06/22/21 11:50 06/22/21 11:50 Labs: Laboratory Results - last 24 hr 06/22/21 06/22/21 06/22/21 11:50 11:50 14:27 WBC 5.1 RBC 4.79 Hgb 14.1 Hct 42.9 MCV 89.5 MCH 29.4 MCHC 32.8 RDW 14.0 Plt Count 227 Neut % (Auto) 53.7 Lymph % (Auto) 31.5 [place] % (Auto) 9.8 Eos % (Auto) 3.6 Baso % (Auto) 1.4 Neut # (Auto) 2700 Lymph # (Auto) 1600 [place] # (Auto) 500 Eos # (Auto) 200 Baso # (Auto) 100 Sodium 141 Potassium 4.4 Chloride 108 H Carbon Dioxide 28 BUN 15 Creatinine 0.75 Estimated GFR > 60.0 BUN/Creatinine Ratio 20.0 Glucose 97 Calcium 8.9 Total Bilirubin 0.7 AST 26 ALT 12 Alkaline Phosphatase 77 Total Creatine Kinase 140 H CK-MB (CK-2) 1.03 CK-MB (CK-2) Rel Index 0.7 L Troponin I < 0.012 Total Protein 7.0 Albumin 4.3 Globulin 2.7 Albumin/Globulin Ratio 1.6 Urine RBC 0-1/hpf Urine WBC 5-10/hpf H Ur Squamous Epith Cells None seen Urine Bacteria Occasional (0-1) Ur Culture Indicated? Specimen cultured Assessment & Plan Assessment & Plan narrative: ?Carey Zuniga is a 65-year-old female with a history of hyperlipidemia, anxiety, foraminal stenosis of the lumbar region, gait disorder presents to the ED status post 1 transient episodes of speech slurring and focal left arm weakness, left hand numbness, left side of mouth tingling and droop. Patient admitted for neurological deficit, with hypertensive urgency. 1. Neurological deficit (left arm weakness, left hand numbness, lip tingling Lt, slurred speach), transient, with HTN urgency without dx of HTN, acute, present on admission -initial BP 203/110, 2 , 188/89, 150/96. Suspect TIA, as symptoms were re solved prior to ED arrival. NIH:0 Heart Score: 2, ABCD 2 score:4 -brain MRI no acute intracranial processes, no obvious vascular occlusions or aneurysms, no area of hemodynamically significant stenosis. -differential diagnosis TIA, stroke, ischemic stroke, intracranial hemorrhage, subdural hematoma, epidural hematoma, seizure, brain tumor, migraine, vertigo, hypoglycemia, Nory Kevin syndrome, multiple sclerosis, aortic dissection Vital signs q.4 hours, neuro checks Q shift, notify provider for temp greater than 38 C, , heart rate >100 -treat systolic blood pressure>220 or diastolic blood pressure> 120 -activity as tolerated. PT/OT evaluation, fall precautions. -supplemental O2 to maintain> 94% -Diet NPO until swallow evaluation is done, then heart healthy if cleared -fluids: -Medications: Aspirin 81 mg p.o. q.day within 48 hours, Lipitor 80 mg -labs CBC, BNP, TSH, hemoglobin A1c,Lipid panel, urine culture pending from ED - echo tomorrow -PT/OT/ST evaluations Code status: Full code Surrogate decision maker: Mother Hanh Purcell COVID PCR: Negative COVID vaccination: J&J December 2020 DVT/VTE prophylaxis: Lovenox 40 mg and SCDs Disposition: Estimated length of stay less than 2 midnights I have utilized all available immediate resources to obtain, update, or review the patient's current medications. I confirmed that the patient's advanced care plan is present, Code status is documented and/or surrogate decision maker is listed in the patient's medical record. Time Spent With Patient Critical Care time: I spent a total of [] minutes of critical care time on this patient's care today; this time is exclusive of procedural time. Scores GCS Ean coma scale eye opening: Spontaneous Ean coma scale verbal response: Orientated [place] coma scale motor response: Obey commands Ean coma scale total score: 15
[2021-06-22] MEDS: ATORVASTATIN 20 MG TABLET 80 MG PO (20:45)
[2021-06-23 04:00] VITALS: BP 138/77; PULSE 80; RESP 18; TEMP 36.6; O2SAT 97
[2021-06-23 05:57] LABS: Add Manual Diff / Slide Review NO; Basophils Absolute Auto 100 /uL (0-100); Basophils Percent Auto 1.1 % (0-2); Eosinophils Absolute Auto 200 /uL (0-450); Eosinophils Percent Auto 2.7 % (2-4); Hematocrit 43.1 % (36-46); Hemoglobin 14.1 g/dL (12.0-16.0); Lymphocytes Absolute Auto 2100 /uL (1100-4500); Lymphocytes Percent Auto 32.3 % (25-40); Mean Corpuscular HGB Conc 32.8 % (30-36); Mean Corpuscular Hemoglobin 29.4 PG (26-34); Mean Corpuscular Volume 89.7 fL (80-100); Monocytes Absolute Auto 500 /uL (0-900); Monocytes Percent Auto 8.2 % (3-14); Neutrophils Absolute Auto 3600 /uL (1500-7000); Neutrophils Percent Auto 55.7 % (50-75); Platelet Count 237 X10^3/uL (150-400); Red Blood Cell Count 4.81 X10^6/uL (4.0-5.2); Red Cell Distribution Width 14.3 % (11.6-14.8); White Blood Cell Count 6.5 X10^3/uL (4.5-11.0)
[2021-06-23 06:06] LABS: Cholesterol 248 mg/dL (140-199); HDL Cholesterol 64 mg/dL (40-60); LDL Cholesterol Calculated 165 mg/dL (<100); Triglycerides 95 mg/dL (35-150)
[2021-06-23 06:07] LABS: BUN Creatinine Ratio 21.3 (6-22); Blood Urea Nitrogen 16 mg/dL (7-17); Calcium 9.5 mg/dL (8.4-10.2); Carbon Dioxide 27 mmol/L (22-32); Chloride 107 mmol/L (98-107); Estimated Glomerular Filt Rate > 60.0 mL/min (>60); Glucose 96 mg/dL (80-110); HEMOLYSIS < 15 (0-50); Potassium 4.4 mmol/L (3.4-5.1); Sodium 140 mmol/L (137-145)
[2021-06-23 06:14] LABS: Hemoglobin A1C% w Est Avg Glu 4.8 % (4.0-6.0)
[2021-06-23 08:00] VITALS: BP 130/80; PULSE 74; RESP 18; TEMP 36.5; O2SAT 98
[2021-06-23 08:50] LABS: COVID19 - ADMIT (NP swab/PCR) Negative (Negative)
[2021-06-23] MEDS: ASPIRIN EC 81 MG TABLET PO (09:30)
--- NOTE | 2021-06-23 10:30 | OT.IP.EVAL ---
Past Medical History (Last Reviewed 06/23/21 @ 03:13 by Kalyani Schroeder [facility]) Cardiac arrhythmia (~2013) Chickenpox Diarrhea (05/04/16) Dyspareunia (07/25/12) Eczema (~2011) Facet arthropathy, lumbar Fibroids Foot pain (~2015) Foraminal stenosis of lumbar region History of endometrial biopsy (~2012) Hormone replacement therapy HSV (herpes simplex virus) infection (~1977) Impaired fasting glucose Lumbosacral spondylosis Mumps Overweight Tinnitus Surgical History (Last Reviewed 06/23/21 @ 03:13 by Kalyani Schroeder [facility]) Anesthesia Status post delivery (03/15/98) Occupational Therapy Inpatient Evaluation/Re-Eval M1 PT/OT-IP Prior Functional Status Start: 06/23/21 12:03 Freq: NEEDED Status: Active Protocol: Document 06/23/21 12:10 [facility] (Rec: 06/23/21 12:36 [facility] [id number]) Medical Review Prior Functional Status Communication Independent Mobility and Gait Independent Activities of Daily Living and IADL's Completely independent for all ADL , IADL , adn drives. Social History Household Members spouse,none Living Arrangements House Number of Stairs To Enter/Railing? Pt states has several steps and then a flight of steps in the house. M2 OT-IP Current Condition Start: 06/23/21 12:03 Freq: Status: Active Protocol: Document 06/23/21 12:10 [facility] (Rec: 06/23/21 12:36 [facility] [id number]) Occupational Therapy Current Condition Current Condition Evaluation Date 06/23/21 Treatment Diagnosis TIA, neurological deficits Diagnosis Onset Date 06/22/21 M3 OT- IP Subjective and Pain Start: 06/23/21 12:03 Freq: Status: Active Protocol: Document 06/23/21 12:10 [facility] (Rec: 06/23/21 12:36 [facility] [id number]) OT- Subjective Occupational Therapy Visit Type Type Initial Evaluation Visit Start Time 10:10 Visit Stop Time 10:30 Total Visit Minutes 20 Occupational Therapy Visit Comments Patient Comments Pt states feel back to normal but willing to talk to and work with OT. Patient/Caregiver Goals TO go home. OT Pain Assessment Pain When Pain Assessed At Rest M4 OT- IP ADL's Start: 06/23/21 12:03 Freq: Status: Active Protocol: Document 06/23/21 12:10 [facility] (Rec: 06/23/21 12:36 [facility] [id number]) OT [id number] Comments OT Self-Feeding Comments Per pt had no issues. OT ADL-Grooming Comments OT Grooming Comments Not performed. OT ADL-Oral Care Comments Oral Care Comments NOt performed. OT ADL-Dressing Comments OT Dressing Comments Pt states able to dress herself this morning without any issues. OT ADL-Toileting Comments OT Toileting Comments Pt states has been using the bathroom on her own. M5 OT- IP IADL's Start: 06/23/21 12:03 Freq: Status: Active Protocol: Document 06/23/21 12:10 [facility] (Rec: 06/23/21 12:36 [facility] [id number]) OT-Instrumental Activities of Daily Living Home Safety Awareness Awareness of Need for Assistance at Home Good Awareness Ability to Problem Solve Emergency Able to Problem Solve Situations Medication Management Medication Management No Deficits Identified Money Management Money Management No Deficits Identified Meal Preparation Meal Preparation Comments Pt should have no difficulties . Raw Hide Trimmer Raw Hide Trimmer Comments Pt should have no difficulties . M6 OT- IP Functional Cognition Start: 06/23/21 12:03 Freq: Status: Active Protocol: Document 06/23/21 12:10 [facility] (Rec: 06/23/21 12:36 [facility] [id number]) Cognitive Factors Limiting Selfcare Function Cognitive Ability Level of Alertness Alert Patient Orientation Name,Age,Birthday,Month,Date, Year,Day of Week,Place, Situation Ability to Follow Commands Able to Follow One Step Commands,Able to Follow Multi- Step Commands Memory Description No Deficits Noted Safety Awareness No Deficits Noted Problem Solving Ability No deficits Noted Executive Function Ability No Deficits Noted Cognitive Comments Cognitive Assessment Comments Pt scored 80 seconds on [place] Making Part B which implies normal but not perfect for visual attention, task switching, speed of processing , mental flexibility, and executive functioning. OT- Vision and Hearing OT- Hearing Assessment OT- Hearing Assessment WFL OT- Vision Assessment Visual Acuity WFL M7 OT- IP Mobility and Balance Start: 06/23/21 12:03 Freq: Status: Active Protocol: Document 06/23/21 12:10 [facility] (Rec: 06/23/21 12:36 [facility] [id number]) OT- Bed Mobility Assessment Supine to Sit Supine to Sit Assist Independent Sit to Supine Sit to Supine Assist Independent Scooting Scooting to Edge of Bed Independent Scooting Up and Down in Bed Independent OT-Transfer Assessment Sit to and From Stand Sit to and from Stand Independent Transfers Transfer Ability Independent Technique Transfer Destination Bed,Chair Transfer Technique Stand Step Pivot Devices Transfer Assistive Devices None Comments Mobility Comments Pt able to ambulate independently in the room and also able to negotiate object and get out from underneath the tray table while getting up. OT- Gait Assessment Comments Gait Ability Comments Independent for level surfaces . Pt insistent that she will be okay and not wanting to do any steps at this time. OT- Balance Assessment Sitting Balance and Reactions Static Sitting Balance Ability Normal Dynamic Sitting Balance Ability Normal Standing Balance and Reactions Static Standing Balance Ability Normal Dynamic Standing Balance Ability Good M8 OT- IP Objective Assessments Start: 06/23/21 12:03 Freq: Status: Active Protocol: Document 06/23/21 12:10 [facility] (Rec: 06/23/21 12:36 [facility] [id number]) OT Gross Range of Motion Upper Extremity Range of Motion Assessment Within Functional Limits OT Strength Comments Strength Comments WFL for transfer needs. Did not formally assess. M9 OT- IP Assessment and Plan Start: 06/23/21 12:03 Freq: Status: Active Protocol: Document 06/23/21 12:10 [facility] (Rec: 06/23/21 12:36 [facility] [id number]) OT Summary Assessment and Plan Potential Rehabilitation Potential Excellent Analytic Complexity at Evaluation Low Summary Progress Towards Goals Safe For Discharge Assessment Summary Pt doing well and here for possible TIA. Pt independently doing ADl's in the room and able to walk without a device and has good balance. Pt not wanting to do steps. Pt scored 80 seconds on [place] Making Part B which implies normal but not perfect score for visual attention, task switching, speed of processing, mental flexibility , and executive functioning. Pt to go home when medically stable. Frequency of Treatment Frequency Of Treatment Discharge Discharge Recommendations OT Discharge Recommendations Home Transportation Needs at Discharge Private Vehicle
--- NOTE | 2021-06-23 10:48 | PC.NURSE ---
Patients NIH stroke scale a 0. Patient is going to be discharged around 1130. She will do an outpatient echo. She passed the stroke packet, able to read sentences and describe pictures. No double vision, moving both arms and legs. Speech is not slurred and smile is symmetrical. Patient has driven herself here.
--- NOTE | 2021-06-23 10:56 | PT.IIE ---
Surgical History (Last Reviewed 06/23/21 @ 03:[facility] Anest[facility] Status post delivery (03/15/98) Medical History (Last Reviewed 06/23/21 @ 03:13 [facility] Cardiac arrhythmia (~2013) Chickenpox Diarrhea (05/04/16) Dyspareunia (07/25/12) Eczema (~2011) Facet arthropathy, lumbar Fibroids Foot pain (~2015) Foraminal stenosis of lumbar region History of endometrial biopsy (~2012) Hormone replacement therapy HSV (herpes simplex virus) infection (~1977) Impaired fasting glucose Lumbosacral spondylosis Mumps Overweight Tinnitus Physical Therapy Inpatient Evaluation/Re-Eval M1 PT/OT-IP Prior Functional Status Start: 06/23/21 12:03 Freq: NEEDED Status: Active Protocol: Document 06/23/21 12:10 [facility] (Rec: 06/23/21 12:36 [facility] [id number]) Medical Review Prior Functional Status Communication Independent Mobility and Gait Independent Activities of Daily Living and IADL's Completely independent for all ADL , IADL , adn drives. Social History Household Members spouse,none Living Arrangements House Number of Stairs To Enter/Railing? Pt states has sveral step and then a flight of steps in the house. M2 PT-IP Current Condition Start: 06/23/21 12:39 Freq: NEEDED Status: Active Protocol: Document 06/23/21 10:56 [facility] (Rec: 06/23/21 12:50 [facility] [id number]) Physical Therapy Current Condition Current Condition Evaluation Date 06/23/21 Treatment Diagnosis TIA; difficulty in walking Onset Date 06/22/21 M3 PT-IP Subjective Start: 06/23/21 12:39 Freq: NEEDED Status: Active Protocol: Document 06/23/21 10:56 [facility] (Rec: 06/23/21 12:50 [facility] [id number]) Subjective Physical Therapy Visit Type Type Initial Evaluation Visit Start Time 10:56 Visit Stop Time 11:16 Total Visit Minutes 20 Number of CARGO OPERATIONS AGENT Visits 0 Physical Therapy Visit Comments Patient Comments agreeable to do PT M4 PT-IP Mobility and Gait Start: 06/23/21 12:39 Freq: NEEDED Status: Active Protocol: Document 06/23/21 10:56 [facility] (Rec: 06/23/21 12:50 [facility] [id number]) PT-Bed Mobility Assessment Supine to Sit Supine to Sit Independent Sit to Supine Sit to Supine Independent PT-Transfer Assessment Sit to and From Stand Sit to and from Stand Independent Equipment Transfer Assistive Device None Orthotic/Prosthetic Devices or Brace: No Transfers Transfer Destination Chair Transfer Technique Stand Step Pivot Transfer Ability Level of Assist Independent Comments Mobility Comments completed bed mobility independent. transfer to chair step pivot without AD independent. ambulated in the hallway without AD SBA for safety. without LOB. has slight R sided trunk lean and LLE crossing over midline but is steady and without LOB. Pt stated that she has chronic L side back pain and has been getting injections for pain. pt completed up/down steps using L rail SBA and then R rail SBA. ambulated back to her room SBA. balance assessment: eyes closed with feet together: G; balance with perturbations: G, single leg stance: L: 15 sec slight unsteadiness but able to maintain stance, R: 15 sec steadier sit<>stand x 5: completed in 9 sec. Left pt on chair and has no other concerns. informed that no PT interventions indicated at this time and pt agreed. informed nurse. BP: 129/89 at start of PT session; end of PT session: 130/87 Gait Assessment Gait Gait Assistance Required: Standby Assistance Distance (Feet) 250 Able to Maintain Weight Bearing Status Yes During Gait Assistive Devices Assistive Device Gait Belt Orthotic/Prosthetic Devices or Brace: No Stair Climbing Assessment Evaluation Level of Assist On Stairs Standby Assistance Devices Stair Climbing Assistive Devices Left Railing,Right Railing Technique/Endurance Stair Climbing Direction Ascend and Descend Stair Climbing Technique Step Over Step Number of Steps Climbed 3 Query Text: Stair Climbing Set # Repetitions (reps) 3 PT-Balance Assessment Sitting Balance and Reactions Static Sitting Balance Ability Normal Dynamic Sitting Balance Ability Normal Standing Balance and Reactions Static Standing Balance Ability Good Dynamic Standing Balance Ability Good Device Used without AD Balance Tests Single Limb Standing R: 5 sec steady L 15 sec unsteady but able to maintain Functional Assessments Functional Tests 5 Times Sit to Stand 9 sec M5 PT-IP Objective Assessments Start: 06/23/21 12:39 Freq: NEEDED Status: Active Protocol: Document 06/23/21 10:56 [facility] (Rec: 06/23/21 12:50 [facility] [id number]) Orientation Orientation/Cognition Level of Alertness Alert Orientation Name,Age,Birthday,Month,Date, Year,Day of Week,Place, Situation Language Function Ability No Deficits Noted Safety Awareness Understands Safety Issues Memory Description No Deficits Noted Gross Range of Motion Lower Extremity ROM Assessment Within Functional Limits Strength Lower Extremity Strength Assessment Within Functional Limits Comments Strength Comments LLE slightly decrease in strength compared to R but has the same MMT grade with R Sensation Assessment Sensation Gross Sensation WNL Muscle Tone Muscle Tone WNL Yes M6 PT-IP Treatment Start: 06/23/21 12:39 Freq: NEEDED Status: Active Protocol: Document 06/23/21 10:56 [facility] (Rec: 06/23/21 12:50 [facility] [id number]) Physical Therapy Treatment Education Education Provided Safety M7 PT-IP Assessment and Plan Start: 06/23/21 12:39 Freq: NEEDED Status: Active Protocol: Document 06/23/21 10:56 [facility] (Rec: 06/23/21 12:50 [facility] [id number]) PT Summary Assessment and Plan Potential Rehabilitation Potential Good Status of Condition at Evaluation Stable Summary Assessment Summary PT eval completed and no further PT intervention indicated at this time. Pt may go home when medically stable. Pt is independent with bed mobility and transfers, SBA provided during ambulation without AD for safety. Frequency of Treatment Frequency Of Treatment Discharge Recommendations To Nursing Amount of Assist Needed Independent Discharge Recommendations PT Discharge Recommendations Home Transportation Needs at Discharge Private Vehicle
--- NOTE | 2021-06-23 11:07 | ST.IPSCREEN ---
Carey was alert and reclined in her bed when clinician arrived. Speech was 100% intelligible and pt reported no concerns. She responded to questions appropriately and reported no difficulty saying what she wants to say. Completed swallow screen and brief oral mechanism exam. Carey demonstrated tongue protrusion, elevation, and lateralization WNL with adequate strength and ROM. Mild left tongue deviation when moving tongue tip down, with no impact on speech or swallowing observed. Hyolaryngeal elevation appears WNL during dry swallow and single sip of water. Throat clear observed following first drink of water through straw cup. No throat clearing on second trial with water through straw cup. No concerns with speech, cognition, or swallowing at this time. Speech therapy is not recommended at this time.
--- NOTE | 2021-06-23 21:32 | PM.DS.1 ---
History of Present Illness History of Present Illness Chief complaint: High blood pressure, slurred speech episode Narrative: Per Kalyani Schroeder: Carey Zuniga is a 65-year-old female with a history of hyperlipidemia, anxiety, foraminal stenosis of the lumbar region, and gait disorder presents to the ED status post 1 transient episodes of speech slurring and focal left arm weakness, left hand/left side of mouth numbness & tingling, and left side mouth droop.? Patient reports that she had this transient episode of left-sided? numbness, weakness, slurred speach 4 days prior to arrival, while at rest sitting on her couch eating dinner, when she went to get up and take her plate to the kitchen she had difficulty standing and the plate slid out of her hand, she reports the event lasted 30-40 minutes approximately.? Called EMT who evaluated her, were not concerned for a stroke, patient did not come to the ED. Patient reports that she had a repeat episode of the speech slurring last night that lasted just under a minute-witnessed by her neighbor.? Denies any focal weakness or tingling yesterday.? Patient also endorses a 0.5/10 headache prior to the speech slurring yesterday.? Patient denies fever, chills, chest pain, shortness of breath, nausea, vomiting, abdominal pain, dysuria, HANSEN, lightheadedness, dizziness, syncope, or worsening/changes to gait disturbance.? Patient denies worsening balance coordination, difficulty swallowing, impaired dexterity, difficulty or changes to bowel and bladder function.? Patient denies history of hypertension, does not take any medications for it.? Patient came in to her PCP office this morning, was sent to the ED on account of elevated systolic blood pressures in the 180s.? Patient denies any neurologic symptoms in the ED. patient endorses that she has a gait problem for a year that is being followed by Neurology, etiology yet unknown.? Patient presented to the ED with blood pressures in the 200s/100s, was given 20 mg of labetalol and systolic BP dropped to the 160s. Patient's vitals upon admit temp 96.9?, BP 150/96, HR 75, RR 18, O2 saturation 99% on room air.? Patient's CBC, CMP, and liver panel are all within normal limits, patient's troponin within normal limits, UA was cultured in ED, patient had an NIH score: 0 ABCD 2 score: 4, EKG normal sinus rhythm without ST or T-wave changes.? Chest x-ray demonstrated no acute cardiopulmonary processes.? Head CT demonstrated no acute intracranial processes or disease.? Head neck CTA no large vessel occlusion or any other vascular malformations.? Patient was found to have calcified and noncalcified atherosclerotic plaque resulting in moderate cavernous right ICA stenosis.? Patient admitted for neurological deficit, TIA versus stroke rule out with elevated blood pressure without the diagnosis of hypertension. Discharge Providers Provider Date of admission: 06/22/21 16:42 Discharge Date: 06/23/21 Primary care physician: Maricel Flores, Consults: 06/22/21 17:42 Consult to Occupational Therapy Evaluate & Treat Comment: Physician Instructions: Evaluate and treat Consult to Physical Therapy Evaluate & Treat Comment: Physician Instructions: Evaluate and Treat Consult to Speech Therapy Evaluate & Treat Comment: Physician Instructions: Evaluate and treat Discharge provider: Mu Ortiz MD Summary Hospital Course Discharge Diagnosis: 1. TIA 2. Hyperlipidemia 3. Anxiety 4. Lumbar foraminal stenosis Hospital Course: Ms. Zuniga presented to the hospital with prior episode of speech slurring, facial droop. She also had hypertension initially. Her blood pressure improved without medical interventions. She did have workup done with CT head, CT angio head/neck, MRI head which showed no acute process. She had no further symptoms in the hospital. She had a possible TIA and was given a prescription for aspirin, atorvastatin. She was encouraged to monitor her blood pressures as an outpatient and follow up with her PCP within 1-2 weeks to determine if she needs to be on anti-hypertensive medications, though as noted above her blood pressure had normalized here in the hospital. Did discuss with her an echocardiogram to complete the workup, and she decided to follow up with her PCP to do this as an outpatient. Exam Vital Signs (past 8 hours): Oxygen Delivery Method Room Air Narrative Exam Narrative: General:? no acute distress Lungs:? clear bilaterally Cardio:? regular rate and rhythm without murmur Abdomen:? Soft nontender Neuro:?no focal deficits Objective Labs Result Diagrams: 06/23/21 05:03 06/23/21 05:03 Labs: Laboratory Results - last 24 hr 06/23/21 06/23/21 06/23/21 05:03 05:03 05:03 WBC 6.5 RBC 4.81 Hgb 14.1 Hct 43.1 MCV 89.7 MCH 29.4 MCHC 32.8 RDW 14.3 Plt Count 237 Neut % (Auto) 55.7 Lymph % (Auto) 32.3 Hodgeman % (Auto) 8.2 Eos % (Auto) 2.7 Baso % (Auto) 1.1 Neut # (Auto) 3600 Lymph # (Auto) 2100 Hodgeman # (Auto) 500 Eos # (Auto) 200 Baso # (Auto) 100 Sodium 140 Potassium 4.4 Chloride 107 Carbon Dioxide 27 BUN 16 Creatinine 0.75 Estimated GFR > 60.0 BUN/Creatinine Ratio 21.3 Glucose 96 Hemoglobin A1c 4.8 Calcium 9.5 Triglycerides Cholesterol LDL Cholesterol, Calc HDL Cholesterol TSH SARS-CoV-2 (PCR) 06/23/21 06/23/21 06/23/21 05:03 05:03 07:15 WBC RBC Hgb Hct MCV MCH MCHC RDW Plt Count Neut % (Auto) Lymph % (Auto) [place] % (Auto) Eos % (Auto) Baso % (Auto) Neut # (Auto) Lymph # (Auto) [place]eman # (Auto) Eos # (Auto) Baso # (Auto) Sodium Potassium Chloride Carbon Dioxide BUN Creatinine Estimated GFR BUN/Creatinine Ratio Glucose Hemoglobin A1c Calcium Triglycerides 95 Cholesterol 248 H LDL Cholesterol, Calc 165 H HDL Cholesterol 64 H TSH 2.40 SARS-CoV-2 (PCR) Negative [facility] Medical History Cardiac arrhythmia (~2013) Chickenpox Diarrhea (05/04/16) Dyspareunia (07/25/12) Eczema (~2011) Facet arthropathy, lumbar Fibroids Foot pain (~2015) Foraminal stenosis of lumbar region History of endometrial biopsy (~2012) Hormone replacement therapy HSV (herpes simplex virus) infection (~1977) Impaired fasting glucose Lumbosacral spondylosis Mumps Overweight Tinnitus Surgical History Anesthesia Status post delivery (03/15/98) Family History Father Age: 85 Heart disease Dementia Hx of CABG Grandmother No problems noted. Grandmother No problems noted. Social History household members: spouse and none Smoking Status: Never smoker Discharge Plan Discharge Plan Patient Disposition: Home Provider Discharge Comment: Ms. Zuniga came in because she had been having high blood pressure, also had episode of left side facial droop, left side numb. She was evaluated for stroke, which was negative. She may have had a TIA. She had high cholesterol. She will be given a cholesterol medicine, and a baby aspirin to reduce her risk of stroke. Her blood pressure improved without medicines. She should follow closely with her primary doctor to monitor her blood pressures, and she should get an echocardiogram as an outpatient. Discharge orders & Medications Prescriptions: New aspirin 81 mg Tablet,Delayed Release (Dr/Ec) 81 mg PO DAILY Qty: 30 RF: 0 atorvastatin 40 mg tablet 40 mg PO BEDTIME Qty: 30 RF: 0 Continued estradiol [Yuvafem] 10 mcg tablet 10 mcg VAG .COMPLEX Qty: 60 RF: 0 valacyclovir 500 mg tablet 1,000 mg PO PRN Qty: 30 RF: 0 Medication counseling provided by Pharmacist: Yes Follow up/Referrals: Maricel Flores DO [Primary Care Provider] - Diet/Activity/Treatments Diet: Regular Visit Report/Discharge Packet Instructions: Aspirin/Acetaminophen (Alternative Therapy), Transient Ischemic Attack Discharge Data Primary Care Provider: Maricel Flores Attending Provider: Mu Ortiz [facility] [place] The patient has current or prior documentation of left ventricular ejection fraction (LVEF) less than 40%, or moderate or severely depressed left ventricular systolic function.: No
== END 2021-06-23 11:45 | disposition home or self-care (01) ==
LOC: ED 16:10 → AC 16:42
PROVIDERS: Emergency Medicine; Nurse Practitioner Family; Admitting Provider Internal Medicine; Emergency Provider Student in an Organized Health Care Education/Training Program; PCP Family Medicine; Referring Provider Student in an Organized Health Care Education/Training Program; Visit Provider Internal Medicine
DX: G45.9 Transient cerebral ischemic attack, unspecified (principal); I16.0 Hypertensive urgency; R29.700 NIHSS score 0; F41.9 Anxiety disorder, unspecified; E78.5 Hyperlipidemia, unspecified; I10 Essential (primary) hypertension; M48.061 Spinal stenosis, lumbar region without neurogenic claudication; Z20.822 Contact with and (suspected) exposure to COVID-19
CPT/HCPCS: 36415; 70450; 70496; 70498; 70548; 70553; 71045; 80048; 80053; 80061; 81003; 81015; 82550; 82553; 83036; 84443; 84484; 85025; 87086; 87635; 93005; 96374; 96376; 97161; 97165; 99285; C9803; G0378; A9579; Q9967

== ENCOUNTER → 2021-07-14 14:17 | Outpatient (CLI) | payer OTHER, SELFPAY ==
[2021-06-22 18:08] VITALS: BMI 24.7
--- NOTE | 2021-08-09 08:06 | P.HOLT.S_ITS ---
Geospatial Specialist Report Referral & Results Date Patient Seen: 07/14/21 Requesting provider: Maricel Flores Indication: Cardiac arrhythmia Duration of monitoring (days): 14 Diary information: There were 5 patient triggered events and 3 patient diary entries Patient triggered events were associated with (within 45 seconds) sinus rhythm and PVCs Patient diary events were associated with sinus rhythm only Data: Minimum heart rate identified was 49 beats per minute at 09:54 on 07/21/2021 Maximum sinus heart rate was 111 beats per minute at 15:00 on 07/18/2021 Maximum overall heart rate was 132 beats per minute at 06:32 on 07/24/2021 during a run of SVT/atrial tachycardia There was 1 run of SVT as above was 4 beats in duration at a rate of 132 beats per minute which might suggest more actual atrial tachycardia than true SVT Less than 1% of identified beats were ventricular or supraventricular ectopic in origin, which would classify them as rare. Impression: Essentially normal 14 day equipment monitor phototypesetting showing very rare very brief runs of either SVT or atrial tachycardia. Rare PACs and PVCs also identified but no clear correlation with any particular dysrhythmia and patient reported symptoms as above Clinical correlation suggested
== END ==
PROVIDERS: PCP Family Medicine; Referring Provider Family Medicine; Visit Provider Family Medicine
DX: I49.9 Cardiac arrhythmia, unspecified (principal); I44.7 Left bundle-branch block, unspecified
CPT/HCPCS: 93246; 93248

== ENCOUNTER → 2021-08-01 13:58 | Outpatient (CLI) | payer OTHER, SELFPAY ==
[2021-06-22 18:08] VITALS: BMI 24.7
[2021-08-01 18:13] LABS: COVID19 -Nasal RAPID Negative (Negative)
== END ==
PROVIDERS: PCP Family Medicine; Visit Provider Physician Assistant
DX: Z01.812 Encounter for preprocedural laboratory examination (principal); Z20.822 Contact with and (suspected) exposure to COVID-19
CPT/HCPCS: 87635

== ENCOUNTER → 2021-10-03 08:57 | Outpatient (CLI) | payer OTHER, SELFPAY ==
[2021-06-22 18:08] VITALS: BMI 24.7
[2021-10-03 10:08] LABS: COVID19 -Nasal RAPID Negative (Negative)
--- NOTE | 2021-10-03 14:31 | PM.TREADMILL ---
Cardiac Stress Test Report Referral & Results Date Patient Seen: 10/03/21 Requesting provider: Maricel Flores Indication: New left bundle-branch block Rest ECG: Left bundle branch block Procedure Note: After both written and verbal informed consent the patient had an IV started by the diagnostic imaging RN, and then was hooked up to the treadmill monitoring system. The Lexiscan material, and then the Cardiolite tracer, were administered sequentially. An additional 3 min was spent monitoring the patient while supine on the gurney. The patient had a normal response to all infused materials. Impression: Normal response to infuse materials Occasional PVC Please see perfusion imaging report for details regarding possible ischemia Please note: Actual ECG tracings can be found in the PACS system.
--- NOTE | 2021-10-03 20:05 | DI.NM.S_ITS ---
DATE OF SERVICE: 10/03/2021 PROCEDURE: Pharmacological perfusion study. INDICATION: Left bundle branch block, PVCs. RADIOPHARMACEUTICAL: 26.2 millicurie technetium-99m Myoview IV was injected at stress and 12.7 millicurie technetium-99m Myoview IV was injected at rest. CARDIAC STRESS: The patient underwent IV Lexiscan perfusion study under the supervision of an attending staff. The patient remained hemodynamically stable. No anginal symptoms. Baseline rhythm was sinus with left bundle branch block. During stress, no convincing new ischemic changes. Occasional PVCs were seen. RAW DATA: Breast shadow was seen. GATED STUDY: Resting LV ejection fraction 61 and stress LV ejection fraction 66 percent. No obvious wall motion abnormalities. Resting end-diastolic volume 127 mL. TID ratio 0.95, which is within normal limits. Lung/heart ratio 0.23, which is within normal limits. MYOCARDIAL PERFUSION SCAN: Stress supine, resting supine and stress prone images were compared to each other. There appears to be predominantly fixed moderate size, moderate to severely decreased perfusion of mid to distal anterior wall extending into the mid to distal anterior septum. No reversible ischemia. CONCLUSION: This is an abnormal myocardial perfusion study with predominantly fixed moderate size, moderate to severely decreased perfusion of mid to distal anterior wall and mid to distal anterior septum. This finding is consistent with mid left anterior descending infarction, however the patient has underlying left bundle branch block. The stress left ventricular ejection fraction 66 percent without any wall motion abnormalities. This may be due to underlying left bundle branch block. Hence, consider further studies to rule out underlying significant left anterior descending disease. Correlate clinically and consider CT coronary angiogram or conventional left heart catheterization. Carey Zuniga - Jazzy/olga doc#: [id number]/job#: [id number] dd: 10/03/2021 17:53:00 dt: 10/03/2021 19:53:00 DICTATING MD/COPIES TO: Judah Waller MD COPIES MNE: EMILY;
== END ==
PROVIDERS: PCP Family Medicine; Referring Provider Family Medicine; Visit Provider Family Medicine
DX: I44.7 Left bundle-branch block, unspecified (principal); I49.9 Cardiac arrhythmia, unspecified; R94.39 Abnormal result of other cardiovascular function study; Z20.822 Contact with and (suspected) exposure to COVID-19
CPT/HCPCS: 78452; 87635; 93016; 93017; 93018; A9502; J2785

== ENCOUNTER → 2021-11-07 13:08 | Outpatient (CLI) | payer OTHER, SELFPAY ==
[2021-06-22 18:08] VITALS: BMI 24.7
[2021-11-07 13:49] LABS: Alanine Aminotransferase 174 IU/L (<35); Albumin 4.5 g/dL (3.5-5.0); Albumin Globulin Ratio 1.5 (1.0-2.8); Alkaline Phosphatase 262 U/L (38-126); Aspartate Aminotransferase 76 IU/L (14-36); BUN Creatinine Ratio 18.6 (6-22); Bilirubin Total 0.9 mg/dL (0.2-1.3); Blood Urea Nitrogen 16 mg/dL (7-17); Calcium 9.5 mg/dL (8.4-10.2); Carbon Dioxide 32 mmol/L (22-32); Chloride 105 mmol/L (98-107); Cholesterol 139 mg/dL (140-199); Estimated Glomerular Filt Rate > 60.0 mL/min (>60); Globulin 3.1 g/dL (1.7-4.1); Glucose 105 mg/dL (80-110); HDL Cholesterol 60 mg/dL (40-60); HEMOLYSIS < 15 (0-50); LDL Cholesterol Calculated 65 mg/dL (<100); Potassium 4.2 mmol/L (3.4-5.1); Sodium 142 mmol/L (137-145); Total Protein 7.6 g/dL (6.3-8.2); Triglycerides 71 mg/dL (35-150)
[2021-11-07 17:40] LABS: Lipase 147 U/L (23-300)
== END ==
PROVIDERS: PCP Family Medicine; Referring Provider Family Medicine; Visit Provider Family Medicine
DX: E78.2 Mixed hyperlipidemia (principal); R94.5 Abnormal results of liver function studies
CPT/HCPCS: 36415; 80053; 80061; 83690

== ENCOUNTER → 2021-11-30 12:02 | Outpatient (CLI) | payer OTHER, SELFPAY ==
[2021-06-22 18:08] VITALS: BMI 24.7
[2021-11-30 14:40] LABS: Alanine Aminotransferase 64 IU/L (<35); Albumin 4.5 g/dL (3.5-5.0); Albumin Globulin Ratio 1.7 (1.0-2.8); Alkaline Phosphatase 126 U/L (38-126); Aspartate Aminotransferase 47 IU/L (14-36); BUN Creatinine Ratio 15.6 (6-22); Blood Urea Nitrogen 14 mg/dL (7-17); Calcium 9.8 mg/dL (8.4-10.2); Carbon Dioxide 31 mmol/L (22-32); Chloride 106 mmol/L (98-107); Estimated Glomerular Filt Rate > 60.0 mL/min (>60); Globulin 2.7 g/dL (1.7-4.1); Glucose 87 mg/dL (80-110); HEMOLYSIS < 15 (0-50); Potassium 4.3 mmol/L (3.4-5.1); Sodium 142 mmol/L (137-145); Total Protein 7.2 g/dL (6.3-8.2)
== END ==
PROVIDERS: Referring Provider Family Medicine; Visit Provider Family Medicine
DX: R94.5 Abnormal results of liver function studies (principal)
CPT/HCPCS: 36415; 80053

== ENCOUNTER → 2021-12-28 11:31 | Outpatient (CLI) | payer OTHER, SELFPAY ==
[2021-06-22 18:08] VITALS: BMI 24.7
[2021-12-28 12:42] LABS: Cholesterol 233 mg/dL (140-199); HDL Cholesterol 59 mg/dL (40-60); LDL Cholesterol Calculated 154 mg/dL (<100); Triglycerides 99 mg/dL (35-150)
== END ==
PROVIDERS: PCP Family Medicine; Referring Provider Family Medicine; Visit Provider Family Medicine
DX: E78.5 Hyperlipidemia, unspecified (principal)
CPT/HCPCS: 36415; 80061

== ENCOUNTER → 2022-06-28 13:57 | Outpatient (CLI) | payer OTHER, SELFPAY ==
[2021-06-22 18:08] VITALS: BMI 24.7
--- NOTE | 2022-06-28 13:58 | DI.ECHO.S_ITS ---
[facility]---------+ [facility] +---------+ : : [address] : : : : [id number] : : : : Phone: [phone]---------+ Echocardiogram Report + + :Name: AFIA KHAN Study Date: 06/28/2022 Height: 65 in : :[facility] ReadingLocation: Weight: 143 lb : : Gender: Female BSA: 1.7 m2 : :: 1955 Age: 66 yrs BP: 161/97 mmHg: :Reason For Study: TIA, LBBB, IRREGULAR HEARTBEAT : :Ordering Physician: : :JACKI HOWE MD. Performed By: Ariana Pisano : :Referring: DARIAN MARCH : + + Interpretation Summary Normal sinus rhythm with wide QRS complexes. Normal LV size and wall thickness. Septal dyssynchrony. Global hypokinesis with EF 40-45%. Normal chamber sizes. No significant valvular abnormalities. No prior study available for comparison. Procedure: A two-dimensional transthoracic echocardiogram with color flow and Doppler was performed. The study quality was technically adequate. A saline contrast injection was performed to assess for cardiac shunting. There is no prior echocardiogram noted for this patient. The patient had a bundle branch block rhythm during the exam. The heart rate ranged between 63-75 bpm during the study. Left Ventricle: The estimated left ventricular end diastolic volume is 100 ml. There is normal left ventricular wall thickness. The ejection fraction is estimated to be 40-45%. Right Ventricle: The right ventricle is normal in size and function. Atria: The left atrial size is normal. Right atrial size is normal. There is no Doppler evidence for an interatrial shunt. Injection of contrast documented no interatrial shunt. Mitral Valve: The mitral valve leaflets appear borderline thickened, but open well. There is mild mitral regurgitation. Aortic Valve: The aortic valve is trileaflet. There is no aortic valve stenosis. There is trace aortic regurgitation. Tricuspid Valve: The tricuspid valve is normal in structure and function. There is mild tricuspid regurgitation. The right ventricular systolic pressure is estimated to be at least 28 mmHg based on an estimated right atrial pressure of 3 mm Hg. Pulmonic Valve: The pulmonic valve leaflets are thin and pliable; valve motion is normal. There is mild pulmonic regurgitation. Great Vessels: The aortic root is normal size. The ascending aorta could not be visualized. The IVC is of normal diameter and collapses greater than 50% with a sniff. This suggests a low right atrial pressure of 3 mm Hg. Pericardium/ Pleura There is no pericardial effusion. There is no pleural effusion. MMode/2D Measurements & Calculations LVIDd: 4.8 cm LVOT diam: 2.0 cm LVIDs: 3.7 cm Ao root diam: 3.0 cm FS: 22.5 % Ao Arch Diam (Prox Trans): 2.7 cm IVSd: 0.80 cm LVPWd: 0.91 cm LV chao. diameter/BSA (cm/m^2): 2.8 LV sys. diameter/BSA (cm/m^2): 2.2 LA A2 area: 18.3 cm2 RA long axis: 4.4 cm LA A4 area: 16.0 cm2 RA area: 11.9 cm2 LA length (vol): 4.5 cm RA vol: 27.7 ml LA vol: 54.9 ml RA : 16.1 ml/m2 LA vol index: 32.0 ml/m2 IVC diam: 1.5 cm RVD1 (basal): 2.8 cm RVD2 (mid): 2.1 cm TAPSE: 1.8 cm Doppler Measurements & Calculations Ao V2 max: 131.5 cm/sec LVOT Max Venkata: 91.2 cm/sec Ao V2 mean: 90.6 cm/sec LV V1 max P.3 mmHg Ao max P.9 mmHg LV V1 VTI: 20.0 cm Ao mean P.6 mmHg RICH(I,D): 2.3 cm2 Ao V2 VTI: 26.2 cm RICH(V,D): 2.1 cm2 sev ratio: 0.76 RICH indexed to BSA (cm^2/m^2): 1.3 MV E max venkata: 59.8 cm/sec TR max venkata: 251.2 cm/sec MV A max venkata: 110.0 cm/sec TR max P.2 mmHg MV E/A: 0.54 PA V2 max: 109.6 cm/sec Med Peak E' Venkata: 3.6 cm/sec PA V2 mean: 75.7 cm/sec E/E' med: 16.8 PA mean P.5 mmHg Lat Peak E' Venkata: 12.6 cm/sec PA pr(Accel): 41.3 mmHg E/E' lat: 4.7 E/e' average: 10.8 MV dec time: 0.18 sec SV(LVOT): 60.6 ml Electronically signed by: Jacki pitts [place] Physician:06/29/2022 06:44 PM
== END ==
PROVIDERS: PCP Pediatrics; Referring Provider Internal Medicine; Visit Provider Internal Medicine
DX: I63.89 Other cerebral infarction (principal); E78.5 Hyperlipidemia, unspecified; G45.9 Transient cerebral ischemic attack, unspecified; I44.7 Left bundle-branch block, unspecified; I49.9 Cardiac arrhythmia, unspecified
CPT/HCPCS: 93306

== ENCOUNTER → 2022-07-08 10:44 | Outpatient (CLI) | payer OTHER, SELFPAY ==
[2021-06-22 18:08] VITALS: BMI 24.7
[2022-07-08 12:34] LABS: BUN Creatinine Ratio 22.2 (6-22); Blood Urea Nitrogen 20 mg/dL (7-17); Calcium 9.2 mg/dL (8.4-10.2); Carbon Dioxide 29 mmol/L (22-32); Chloride 106 mmol/L (98-107); Estimated Glomerular Filt Rate > 60 mL/min (>60); Glucose 97 mg/dL (80-110); HEMOLYSIS < 15 (0-50); Potassium 4.1 mmol/L (3.4-5.1); Sodium 140 mmol/L (137-145)
[2022-07-12 14:44] LABS: Alanine Aminotransferase 21 IU/L (<35); Albumin Globulin Ratio 1.5 (1.0-2.8); Alkaline Phosphatase 83 U/L (38-126); Aspartate Aminotransferase 31 IU/L (14-36); Bilirubin Total 0.9 mg/dL (0.2-1.3); Bilirubin Unconjugated 0.8 mg/dL (0.0-1.1); Cholesterol 203 mg/dL (140-199); Globulin 2.7 g/dL (1.7-4.1); HDL Cholesterol 56 mg/dL (40-60); LDL Cholesterol Calculated 133 mg/dL (<100); Total Protein 6.7 g/dL (6.3-8.2); Triglycerides 71 mg/dL (35-150)
== END ==
PROVIDERS: PCP Pediatrics; Referring Provider Internal Medicine; Visit Provider Internal Medicine
DX: I63.89 Other cerebral infarction (principal)
CPT/HCPCS: 36415; 80048; 80061; 80076

== ENCOUNTER → 2022-09-04 14:32 | Outpatient (CLI) | payer OTHER, SELFPAY ==
[2021-06-22 18:08] VITALS: BMI 24.7
--- NOTE | 2022-09-04 | DI.RAD.S_ITS ---
PROCEDURE: XR SHOULDER LT MIN 2V INDICATIONS: NECK, SHOULDER, AND BACK PAIN TECHNIQUE: 3 views of the shoulder were acquired. COMPARISON: None. FINDINGS: Bones: No fractures or dislocations. No suspicious bony lesions. Visualized ribs appear intact. Soft tissues: No suspicious soft tissue calcifications. IMPRESSION: No acute radiographic findings. Dictated by: Yudy Hunter M.D. on 09/04/2022 at 15:53 Approved by: Yudy Hunter M.D. on 09/04/2022 at 15:54
--- NOTE | 2022-09-04 14:39 | DI.RAD.S_ITS ---
PROCEDURE: XR CERVICAL SPINE 4V OR 5V INDICATIONS: NECK PAIN TECHNIQUE: 5 views of the cervical spine acquired. COMPARISON: None. FINDINGS: Bones: No fractures or dislocations to the C7 T1 level. Oblique images demonstrate no bony foraminal stenoses. No left neural foraminal stenosis. There is moderate stenosis on the right at C2-3, C3-4, C4-5, and C5-6. Soft tissues: No prevertebral soft tissue swelling. IMPRESSION: 1. Right neural foraminal narrowing as above. No compression deformities. No left neural foraminal stenosis. Dictated by: Yudy Hunter M.D. on 09/04/2022 at 15:54 Approved by: Yudy Hunter M.D. on 09/04/2022 at 15:55
--- NOTE | 2022-09-04 14:39 | DI.RAD.S_ITS ---
PROCEDURE: XR SHOULDER RT MIN 2V INDICATIONS: RIGHT SHOULDER PAIN TECHNIQUE: Three views of the shoulder were acquired. COMPARISON: None. FINDINGS: Bones: No fractures or dislocations. No suspicious bony lesions. Visualized ribs appear intact. Soft tissues: No suspicious soft tissue calcifications. IMPRESSION: Normal right shoulder. Dictated by: Yolanda Sanchez M.D. on 09/04/2022 at 17:23 Approved by: Yolanda Sanchez M.D. on 09/04/2022 at 17:24
== END ==
PROVIDERS: PCP Family Medicine; Referring Provider Physical Medicine & Rehabilitation; Visit Provider Physical Medicine & Rehabilitation
DX: M48.02 Spinal stenosis, cervical region (principal); M25.511 Pain in right shoulder; M54.2 Cervicalgia; M54.9 Dorsalgia, unspecified
CPT/HCPCS: 72050; 73030

== ENCOUNTER → 2022-09-27 14:00 | Outpatient (CLI) | payer MEDICARE, OTHER, SELFPAY ==
[2021-06-22 18:08] VITALS: BMI 24.7
[2022-09-27 15:44] LABS: Add Manual Diff / Slide Review NO; Basophils Absolute Auto 100 /uL (0-100); Basophils Percent Auto 1.1 % (0-2); Eosinophils Absolute Auto 100 /uL (0-450); Eosinophils Percent Auto 2.3 % (2-4); Hematocrit 41.3 % (36-46); Hemoglobin 14.1 g/dL (12.0-16.0); Lymphocytes Absolute Auto 1500 /uL (1100-4500); Lymphocytes Percent Auto 30.9 % (25-40); Mean Corpuscular HGB Conc 34.1 % (30-36); Mean Corpuscular Hemoglobin 29.8 PG (26-34); Mean Corpuscular Volume 87.3 fL (80-100); Monocytes Absolute Auto 500 /uL (0-900); Monocytes Percent Auto 9.1 % (3-14); Neutrophils Absolute Auto 2800 /uL (1500-7000); Neutrophils Percent Auto 56.6 % (50-75); Platelet Count 231 X10^3/uL (150-400); Red Blood Cell Count 4.73 X10^6/uL (4.0-5.2); Red Cell Distribution Width 13.5 % (11.6-14.8)
[2022-09-27 15:47] LABS: Hemoglobin A1C% w Est Avg Glu 5.1 % (4.0-6.0)
[2022-09-27 15:50] LABS: Alanine Aminotransferase 43 IU/L (<35); Albumin 4.4 g/dL (3.5-5.0); Albumin Globulin Ratio 1.5 (1.0-2.8); Alkaline Phosphatase 84 U/L (38-126); Aspartate Aminotransferase 43 IU/L (14-36); Bilirubin Total 0.7 mg/dL (0.2-1.3); Blood Urea Nitrogen 25 mg/dL (7-17); Calcium 9.1 mg/dL (8.4-10.2); Carbon Dioxide 26 mmol/L (22-32); Chloride 104 mmol/L (98-107); Estimated Glomerular Filt Rate > 60 mL/min (>60); Glucose 69 mg/dL (80-110); HEMOLYSIS < 15 (0-50); Potassium 4.3 mmol/L (3.4-5.1); Sodium 140 mmol/L (137-145); Total Protein 7.4 g/dL (6.3-8.2)
[2022-09-27 16:21] LABS: TSH w/ Reflex to FT4 2.26 uIU/mL (0.47-4.68)
[2022-09-27 16:39] LABS: Vitamin B12 754 pg/mL (239-931)
== END ==
PROVIDERS: PCP Family Medicine; Referring Provider Family Medicine; Visit Provider Family Medicine
DX: R53.83 Other fatigue (principal); I50.9 Heart failure, unspecified
CPT/HCPCS: 36415; 80053; 82607; 83036; 84443; 85025

== ENCOUNTER → 2022-11-03 16:36 | Outpatient (CLI) | payer MEDICARE, OTHER, SELFPAY ==
[2022-11-02 15:14] VITALS: BMI 24.7
== END ==
PROVIDERS: PCP Family Medicine; Visit Provider Nurse Practitioner Family
DX: R30.0 Dysuria (principal)
CPT/HCPCS: 87086

== ENCOUNTER → 2022-12-26 13:44 | Outpatient (CLI) | payer MEDICARE, OTHER, SELFPAY ==
[2022-11-02 15:14] VITALS: BMI 24.7
--- NOTE | 2022-12-26 | DI.ECHO.S_ITS ---
[facility]---------+ [facility] +---------+ : : [address] : [address] : : : : [id number] : : : : Phone: [phone]---------+ Echocardiogram Report + + :Name: AFIA KHAN Study Date: 12/26/2022 Height: 65 in : :[facility] ReadingLocation: Weight: 150 lb : : Gender: Female BSA: 1.8 m2 : :: 1955 Age: 67 yrs BP: 108/72 mmHg: :Reason For Study: SYSTOLIC AND DIASTOLIC CONGESTIVE HEART : :FAILURE : :Ordering Physician: SHYAM, : :JACKI Performed By: Ariana Pisano : :Referring: JACKI HOWE : + + Interpretation Summary Normal sinus rhythm. Normal LV size, wall thickness, wall motion and LV systolic function. EF is 50-55%. Normal chamber sizes. No valvular abnormalities. Compared to prior study 06/28/2022, LV is much more dynamic. EF is up from 40- 45% to 50-55% Procedure: Images were not obtained from all of the standard acoustic windows due to the limited scope of the study. The study quality was technically adequate. Comparison is made with the echocardiogram of 06/28/2022. The patient was in sinus rhythm with heart rates between 61-75 bpm during the exam. Left Ventricle: The left ventricle is normal in size and wall thickness. The estimated left ventricular end diastolic volume is 80 ml. The ejection fraction is estimated to be 55-60%. Atria: The left atrium is mildly dilated. Right atrial size is normal. Tricuspid Valve: There is mild tricuspid regurgitation. The right ventricular systolic pressure is estimated to be at least 22 mmHg based on an estimated right atrial pressure of 3 mm Hg. Great Vessels: The IVC is of normal diameter and collapses greater than 50% with a sniff. This suggests a low right atrial pressure of 3 mm Hg. Pericardium/ Pleura There is no pericardial effusion. There is no pleural effusion. MMode/2D Measurements & Calculations LVIDd: 4.7 cm LA A2 area: 18.1 cm2 LVIDs: 3.4 cm LA A4 area: 19.4 cm2 FS: 27.4 % LA length (vol): 5.0 cm EPSS: 0.91 cm LA vol: 59.2 ml IVSd: 0.88 cm LA vol index: 33.8 ml/m2 LVPWd: 0.91 cm LV chao. diameter/BSA (cm/m^2): 2.7 LV sys. diameter/BSA (cm/m^2): 2.0 RA long axis: 4.7 cm RA area: 14.8 cm2 RA vol: 39.2 ml RA : 22.4 ml/m2 IVC diam: 1.4 cm Doppler Measurements & Calculations MV E max venkata: 95.9 cm/sec TR max venkata: 219.0 cm/sec MV A max venkaat: 97.7 cm/sec TR max P.2 mmHg MV E/A: 0.98 Med Peak E' Venkata: 5.7 cm/sec E/E' med: 16.8 Lat Peak E' Venkata: 8.0 cm/sec E/E' lat: 12.0 E/e' average: 14.4 MV dec time: 0.17 sec Electronically signed by: Jacki Howe M.D. on Reading Physician:12/27/2022 11:21 PM
== END ==
PROVIDERS: PCP Family Medicine; Referring Provider Internal Medicine; Visit Provider Internal Medicine
DX: I50.41 Acute combined systolic (congestive) and diastolic (congestive) heart failure (principal); I07.1 Rheumatic tricuspid insufficiency
CPT/HCPCS: 93307

== ENCOUNTER → 2023-02-24 15:23 | Outpatient (CLI) | payer MEDICARE, OTHER, SELFPAY ==
[2022-11-02 15:14] VITALS: BMI 24.7
--- NOTE | 2023-02-24 15:24 | DI.MRI.S_ITS ---
PROCEDURE: MR CERVICAL SPINE WO CON INDICATIONS: r/o Cervical myelopathy TECHNIQUE: Noncontrast sagittal T1 spin echo and T2 fast spin echo, sagittal STIR, foraminal oblique sagittal T2 fast spin echo, and axial gradient echo or T2 fast spin echo through the cervical spine. COMPARISON: [facility], CR, XR CERVICAL SPINE 4V OR 5V, 09/04/2022, 14:40. FINDINGS: Image quality: Excellent. Alignment and Curvature: Degenerative retrolisthesis of C4 on C5 measures 3 mm. Bone Marrow: Marrow demonstrates normal overall signal. Spinal Cord: Visualized spinal cord has normal size and signal. No cerebellar tonsillar herniation. Paraspinous Soft Tissues: No paravertebral masses. Prevertebral soft tissues are normal in thickness. C2-C3: No central canal stenosis. Bilateral facet hypertrophy, exuberant on the left. There is moderate left foraminal narrowing with mild flattening deformity on the exiting left C3 nerve root. C3-C4: Disc bulge, eccentric to the left, abuts the cord. There is no central canal stenosis. There is left uncovertebral joint hypertrophy. There is exuberant left facet hypertrophy. There is moderate to severe left foraminal narrowing with a degree of left foraminal C4 nerve root impingement. C4-C5: Degenerative retrolisthesis of C4 on C5. Diffuse disc bulge indents on the cord. AP diameter of the canal is 8.8 mm. Bilateral facet hypertrophy. Moderate right foraminal narrowing. Moderate to severe left foraminal narrowing with a degree of left foraminal C5 nerve root impingement. C5-C6: Diffuse posterior disc plus osteophyte. No canal stenosis. Bilateral uncovertebral joint hypertrophy and facet hypertrophy. Moderate left foraminal narrowing with mild flattening deformity on the exiting left C6 nerve root. C6-C7: Posterior disc bulge. No canal stenosis. Mild bilateral foraminal narrowing. C7-T1: Disc bulge. No canal stenosis or significant foraminal stenosis. IMPRESSION: 1. Multilevel facet arthropathy, left greater than right. 2. Moderate canal stenosis at C4-C5. 3. Multilevel foraminal narrowing as described above. Findings include moderate to severe left foraminal narrowing at C3-C4 and C4-C5. Dictated by: Kenneth Dueñas M.D. on 02/26/2023 at 9:39 Approved by: Kenneth Dueñas M.D. on 02/26/2023 at 10:01
== END ==
PROVIDERS: PCP Family Medicine; Referring Provider Physical Medicine & Rehabilitation; Visit Provider Physical Medicine & Rehabilitation
DX: M48.02 Spinal stenosis, cervical region (principal); M47.22 Other spondylosis with radiculopathy, cervical region; R26.9 Unspecified abnormalities of gait and mobility; G95.9 Disease of spinal cord, unspecified
CPT/HCPCS: 72141

== ENCOUNTER 2023-03-29 15:23 | Outpatient (CLI) | payer MEDICARE, OTHER, SELFPAY ==
[2022-11-02 15:14] VITALS: BMI 24.7
[2023-03-29] VITALS (9 sets, daily range): BP systolic 133–152; BP diastolic 55–80; PULSE 71–79; RESP 11–18; TEMP 36.8; O2SAT 98–100
--- NOTE | 2023-03-29 15:27 | DI.RAD.S_ITS ---
PROCEDURE: PAIN L/SI FACET INJ/BLK 1STL INDICATIONS: SPONDYLOSIS COMPARISON: None. FINDINGS: Fluoroscopic spot filming was performed to verify placement of spinal needles 3 separate levels for multilevel right-sided lumbar medial branch block. IMPRESSION: 3 needles have been placed for a multilevel right-sided lumbar medial branch block. Dictated by: Kenneth Dueñas M.D. on 03/30/2023 at 10:11 Approved by: Kenneth Dueñas M.D. on 03/30/2023 at 10:13
[2023-03-29] MEDS: MIDAZOLAM 2 MG/2 ML VIAL IV (16:35)
[2023-03-29] MEDS: BUPIVACAINE 0.5% (PF) 10 ML VIAL 5 ML INJ (16:38)
[2023-03-29] MEDS: IOPAMIDOL 15 ML VIAL 3 ML INJ (16:38)
[2023-03-29] MEDS: LIDOCAINE 1% 20 ML INJ (16:39)
--- NOTE | 2023-03-29 16:49 | PM.PROC.IR.1 ---
Date/Time/Diagnoses Date of procedure: 03/29/23 Time of procedure: 16:49 Pre-procedure diagnosis: 1. FACET ARTHROPATHY Post-procedure diagnosis: same Procedure Notes Procedure: 1. BILATERAL- L4, L5 and S1 DIAGNOSTIC MB BLOCKS with LA Anesthetic Indications: Carey is referred by Dr. Gutierrez for treatment of Bilateral Axial LBP. Physician: Gerard Petersen Total Fluoroscopy time (seconds): 6 Total sedation minutes: 10 Complications: none Procedure in detail & Post-procedure care: DESCRIPTION OF PROCEDURE Fluoroscopically guided, contrast-controlled bilateral L4, L5 and S1 medial branch blocks with 0.5cc of 0.5% Marcaine. Following review of allergy and review of potential side effects and complications, including, but not necessarily limited to, infection, allergic reaction, local tissue breakdown, nerve injury, paralysis, stroke and possible , the patient indicated that the patient understood and agreed to proceed. An informed consent document was signed by the patient, witnessed by a nurse, and placed in the patient's chart. After review of previous anaesthesic history and IV conscious sedation the patient was deemed safe to proceed with today's procedure with IV conscious sedation as ASA class II designation. Safety time-out was performed to confirm patient ID, procedure to be performed and site of procedure. IV sedation was accomplished with a combination of 2mg of Versed was administered by the RN after DO order, titrated to patient comfort during the course of the procedure while the patient remained responsive to all verbal commands In the prone position, following sterile prep and drape of the lumbar region, the right L4, L5 and S1 anatomical location of the medial branch of the dorsal ramus was identified fluoroscopically. Subsequently an anesthetic skin wheal using 1% lidocaine solution was initiated at each of the anatomical spots. Subsequently then a 22-gauge 3.5-inch spinal needle was atraumatically introduced and advanced under fluoroscopic guidance at each of the corresponding sites at the right L4, L5 and S1 MB. After negative aspiration, 0.2cc of Isovue 200 was injected, confirming placement without vascular or intrathecal uptake. Subsequently then 0.5cc of 0.5% Marcaine solution was injected at each of the corresponding sites at the right L4, L5 and S1 medial branch locations. The identical procedure was replicated on the left. The patient tolerated the procedure well without signs or symptoms of complications prior to transfer to the recovery area continued monitoring without incident. Post-procedure, the patient was monitored initiating provocative activities to measure the amount of relief from block of the facetogenic pain. The patient reported a VAS of 7 prior to the procedure and a post-procedure VAS of 1. It has been a pleasure to assist in the diagnostic and therapeutic care of your patient. POST OP INSTRUCTIONS The patient was provided with a Pain Log to complete over the next several hours and subsequent days prior to the patient's follow up with the ordering physician. 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 The patient is aware, was provided, once again, with a Pain Log and will follow up with the referring physician for review and clinical correlation
== END 2023-03-29 17:08 | disposition home or self-care (01) ==
PROVIDERS: PCP Family Medicine; Referring Provider Physical Medicine & Rehabilitation; Visit Provider Physical Medicine & Rehabilitation
DX: M47.816 Spondylosis without myelopathy or radiculopathy, lumbar region (principal); M47.817 Spondylosis without myelopathy or radiculopathy, lumbosacral region
CPT/HCPCS: 64493; 64494; 64495; 99152; J2250

== ENCOUNTER 2023-05-01 14:22 | Outpatient (CLI) | payer MEDICARE, OTHER, SELFPAY ==
[2023-04-04 14:20] VITALS: BMI 24.7
[2023-05-01] VITALS (9 sets, daily range): BP systolic 130–177; BP diastolic 69–87; PULSE 66–73; RESP 12–22; TEMP 37.2; O2SAT 98–100
--- NOTE | 2023-05-01 14:27 | DI.RAD.S_ITS ---
PROCEDURE: PAIN L/SI FACET INJ/BLK 1STL INDICATIONS: SPONDYLOSIS COMPARISON: [facility], , PAIN L/SI FACET INJ/BLK 1STL, 03/29/2023, 16:38. FINDINGS: Fluoroscopic spot filming was performed to verify placement of spinal needles at the right L4, L5, and S1. level(s), as labeled on the films. Appropriate location(s) of the needle tip(s) was confirmed by injection of iodinated contrast. IMPRESSION: Fluoroscopic guidance images L4-S1. Please see procedural note for full details. Dictated by: Joel Knowles M.D. on 05/01/2023 at 16:51 Approved by: Joel Knowles M.D. on 05/01/2023 at 16:52
[2023-05-01] MEDS: LIDOCAINE 2% INJ MDV 20ML 5 ML INJ (15:14)
[2023-05-01] MEDS: MIDAZOLAM 2 MG/2 ML VIAL IV (15:14)
[2023-05-01] MEDS: IOPAMIDOL 15 ML VIAL 3 ML INJ (15:18)
--- NOTE | 2023-05-01 15:40 | P.PCN_ITS ---
Date/Time/Diagnoses Date of procedure: 05/01/23 Time of procedure: 15:40 Pre-procedure diagnosis: 1. FACET ARTHROPATHY Post-procedure diagnosis: same Procedure Notes Procedure: 1. BILATERAL- L4, L5 and S1 DIAGNOSTIC MB BLOCKS with SA Anesthetic Indications: Carey is referred by Dr. Gutierrez for treatment of Bilateral Axial LBP. Physician: Gerard Petersen Total Fluoroscopy time (seconds): 14 Total sedation minutes: 16 Complications: none Procedure in detail & Post-procedure care: DESCRIPTION OF PROCEDURE Fluoroscopically guided, contrast-controlled bilateral L4, L5 and S1 medial branch blocks with 0.5cc of 2% Lidocaine. Following review of allergy and review of potential side effects and complications, including, but not necessarily limited to, infection, allergic reaction, local tissue breakdown, nerve injury, paralysis, stroke and possible , the patient indicated that the patient understood and agreed to proceed. An informed consent document was signed by the patient, witnessed by a nurse, and placed in the patient's chart. After review of previous anaesthesic history and IV conscious sedation the patient was deemed safe to proceed with today's procedure with IV conscious sedation as ASA class II designation. Safety time-out was performed to confirm patient ID, procedure to be performed and site of procedure. IV sedation was accomplished with a combination of 2mg of Versed was administered by the RN after DO order, titrated to patient comfort during the course of the procedure while the patient remained responsive to all verbal commands In the prone position, following sterile prep and drape of the lumbar region, the right L4, L5 and S1 anatomical location of the medial branch of the dorsal ramus was identified fluoroscopically. Subsequently an anesthetic skin wheal using 1% lidocaine solution was initiated at each of the anatomical spots. Subsequently then a 22-gauge 3.5-inch spinal needle was atraumatically introduced and advanced under fluoroscopic guidance at each of the corresponding sites at the right L4, L5 and S1 MB. After negative aspiration, 0.2cc of Isovue 200 was injected, confirming placement without vascular or intrathecal uptake. Subsequently then 0.5cc of 2% Lidocaine solution was injected at each of the corresponding sites at the right L4, L5 and S1 medial branch locations. The identical procedure was replicated on the left. The patient tolerated the procedure well without signs or symptoms of complications prior to transfer to the recovery area continued monitoring without incident. Post-procedure, the patient was monitored initiating provocative activities to measure the amount of relief from block of the facetogenic pain. The patient reported a VAS of 7 prior to the procedure and a post-procedure VAS of 1. It has been a pleasure to assist in the diagnostic and therapeutic care of your patient. POST OP INSTRUCTIONS The patient was provided with a Pain Log to complete over the next several hours and subsequent days prior to the patient's follow up with the ordering physician. 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 The patient is aware, was provided, once again, with a Pain Log and will follow up with the referring physician for review and clinical correlation
== END 2023-05-01 16:00 | disposition home or self-care (01) ==
LOC: RAD 14:25
PROVIDERS: PCP Family Medicine; Referring Provider Physical Medicine & Rehabilitation; Visit Provider Physical Medicine & Rehabilitation
DX: M47.816 Spondylosis without myelopathy or radiculopathy, lumbar region (principal); M47.817 Spondylosis without myelopathy or radiculopathy, lumbosacral region
CPT/HCPCS: 64493; 64494; 99152; J2250

== ENCOUNTER 2023-06-28 10:44 | Outpatient (CLI) | payer MEDICARE, OTHER, SELFPAY ==
[2023-04-04 14:20] VITALS: BMI 24.7
[2023-06-28] VITALS (11 sets, daily range): BP systolic 95–152; BP diastolic 55–77; PULSE 50–76; RESP 10–43; TEMP 36.7; O2SAT 95–99
--- NOTE | 2023-06-28 10:47 | DI.RAD.S_ITS ---
PROCEDURE: PAIN L/S MED/LAT N RFA BILAT INDICATIONS: SPONDYLOSIS COMPARISON: None. FINDINGS: Fluoroscopic spot filming was performed to verify placement of spinal needles at the bilateral L4, L5 and S1 pedicles level(s), as labeled on the films. Appropriate location(s) of the needle tip(s) was confirmed by injection of iodinated contrast. IMPRESSION: Access needles at the bilateral L4-L5 and S1 pedicles for bilateral L4, L5 and S1 median branch block. Dictated by: Aviva Mitchell MD, PhD on 06/28/2023 at 13:09 Approved by: Aviva Mitchell MD, PhD on 06/28/2023 at 13:09
[2023-06-28] MEDS: MIDAZOLAM 2 MG/2 ML VIAL IV (11:36)
[2023-06-28] MEDS: fentaNYL 100 MCG/2 ML INJ 50 MCG IV (11:41)
[2023-06-28] MEDS: BUPIVACAINE 0.5% (PF) 10 ML VIAL 5 ML INJ (11:43)
[2023-06-28] MEDS: LIDOCAINE 1% 20 ML 5 ML INJ (11:44)
--- NOTE | 2023-06-28 12:18 | P.PCN_ITS ---
Date/Time/Diagnoses Date of procedure: 06/28/23 Time of procedure: 12:18 Pre-procedure diagnosis: 1. RECALCITRANT FACET ARTHROPATHY Post-procedure diagnosis: same Procedure Notes Procedure: 1. BILATERAL L4 AND L5 MEDIAL BRANCH RADIOFREQUENCY NEUROTOMY AND S1 DORSAL RAMUS BRANCH RADIOFREQUENCY NEUROTOMY Indications: Carey is referred by Dr. Gutierrez for treatment of facet arthropathy. Physician: Gerard Petersen Total Fluoroscopy time (seconds): 15 Total sedation minutes: 33 Complications: none Procedure in detail & Post-procedure care: DESCRIPTION OF PROCEDURE Bilateral L4 and L5 medial branch radiofrequency neurotomy and bilateral S1 dorsal ramus radiofrequency neurotomy under fluoroscopy with conscious sedation. The patient is well known to this clinic having undergone previous facet injections with good but temporary relief. The patient has experienced appropriate, concordant relief with previous facet and median branch blocks but the patient's pain has been recalcitrant to further conservative measures. Therefore, based upon the patient's relief and persistent symptoms, the patient is considered an appropriate candidate for facet rhizotomy. All of the patient's questions regarding the risks versus benefits of the procedure, including, but not limited to, bleeding, infection, temporary as well as lasting nerve injury, paralysis, stroke, and , as well treatment alternatives were answered to satisfaction. After obtaining informed consent, denial of pertinent drug allergies, as well as being made aware of the potential risks of bleeding, infection, spinal cord trauma, paralysis, temporary and permanent nerve damage, seizure, stroke, and possible , the patient was brought to the fluoroscopy suite and positioned prone on the fluoroscopy table. The lumbar region was prepped with Betadine and covered with a fenestrated drape in the usual sterile fashion. Appropriate monitors applied including pulse oximeter, pulse, and blood pressure for regular monitoring throughout the procedure. After review of previous anaesthesic history and IV conscious sedation the patient was deemed safe to proceed with today's procedure with IV conscious sedation as ASA class II designation. Safety time-out was performed to confirm patient ID, procedure to be performed and site of procedure. IV sedation was accomplished with a combination of 2mg of Versed and 50mcg of Fentanyl administered by the RN after DO order, titrated to patient comfort during the course of the procedure while the patient remained responsive to all verbal commands. After local infiltration using 1% lidocaine, under fluoroscopic guidance, a 10- cm RF insulated needle with a 10-mm active tip was positioned parallel to the junction of the right sacral ala and the superior articulating process where the S1 dorsal ramus resides. Needle placement was confirmed with motor stimulation of .5v on the right which produced local stimulation without radicular component. The stimulation was then increased to 2v with, once again, only local multifidus stimulation without radicular component. The needle was then removed and the identical procedure was performed along the length of the right L5 medial branch with motor stimulation at .7v on the right. The identical procedure was once again performed along the length of the right L4 medial branch with motor stimulation of .5v on the right. The medial branches were then anesthetised with 0.5% Marcaine. This was then followed by two discreet lesions performed at 80 degrees Celsius for 90 seconds each. The identical procedure was repeated on the left. The patient tolerated the procedure well without signs or symptoms of complications prior to transfer to the recovery area continued monitoring without incident. The patient was then transferred to the recovery area where they were observed for an appropriate period of time after the injection. The patient reported a VAS score of 8 prior to the procedure and a post-procedure VAS of 1. POST OP INSTRUCTIONS The patient was provided a Pain Log to continue to record the patient's response to the target-specific procedure prior to the patient's follow-up visit with the referring physician. Additionally, specific post-injection care instructions and a contact number to our office were provided if concerns arise regarding possible complications associated with the procedure are suspected.
== END 2023-06-28 12:26 | disposition home or self-care (01) ==
LOC: RAD 10:45
PROVIDERS: PCP Family Medicine; Referring Provider Physical Medicine & Rehabilitation; Visit Provider Physical Medicine & Rehabilitation
DX: M47.816 Spondylosis without myelopathy or radiculopathy, lumbar region (principal); M47.817 Spondylosis without myelopathy or radiculopathy, lumbosacral region
CPT/HCPCS: 64635; 64636; 99152; 99153; J2250; J3010

== ENCOUNTER → 2023-07-04 16:39 | Outpatient (CLI) | payer MEDICARE, OTHER, SELFPAY ==
[2023-04-04 14:20] VITALS: BMI 24.7
--- NOTE | 2023-07-04 16:48 | DI.MG.S_ITS ---
BILATERAL DIGITAL SCREENING MAMMOGRAM 3D/2D WITH CAD: 07/04/2023 CLINICAL: Routine screening. Family history of breast cancer. Comparison is made to exams dated: 09/10/2020 mammogram, 10/05/2018 mammogram, and 07/01/2013 mammogram - [facility]. There are scattered areas of fibroglandular density in both breasts (category b / 25%-50% glandular tissue). Current study was also evaluated with a Computer Aided Detection (CAD) system. No significant masses, calcifications, or other findings are seen in either breast. There has been no significant interval change. IMPRESSION: NEGATIVE There is no mammographic evidence of malignancy. A 1 year screening mammogram is recommended. Based on the Tyrer Cuzick model (a risk assessment model) the patient's lifetime risk is 10.1% and her 10 year risk is 4.9%. According to the ACR, ACS, and NCCN guidelines, an annual breast MRI exam along with mammogram is recommended if the patient's lifetime risk is 20% or greater. This exam was interpreted at Station ID: [id number]. NOTE: For mammograms, a report in lay terms will be sent to the patient. Approximately 15% of breast malignancies will not be visualized mammographically. In the management of a palpable breast mass, a negative mammogram must not discourage biopsy of a clinically suspicious lesion. Electronically Signed By: Agnes mosley/manish:07/05/2023 14:17:00 letter sent: Normal Exam ACR BI-RADS Category 1: Negative [id number]
== END ==
PROVIDERS: PCP Family Medicine; Referring Provider Family Medicine; Visit Provider Family Medicine
DX: Z12.31 Encounter for screening mammogram for malignant neoplasm of breast (principal); Z80.3 Family history of malignant neoplasm of breast
CPT/HCPCS: 77063; 77067

== ENCOUNTER → 2023-07-11 12:40 | Outpatient (CLI) | payer MEDICARE, OTHER, SELFPAY ==
[2023-04-04 14:20] VITALS: BMI 24.7
--- NOTE | 2023-07-11 12:42 | DI.US.S_ITS ---
PROCEDURE: US PELVIC COMPLETE INDICATIONS: UTERINE FIBROID TECHNIQUE: Real-time scanning was performed of the pelvic organs, with image documentation. Additional endovaginal scanning was necessary due to incomplete visualization of the adnexal and endometrial structures by transabdominal scanning. COMPARISON: [facility], , US PELVIC COMPLETE, 08/26/2020, 11:27. FINDINGS: Uterus: Uterus is vertically oriented and slightly enlarged in size at 10.2 x 7.4 x 8.6 cm. The myometrium is heterogeneous due to a large left myometrial mass measuring 6.0 x 5.8 x 4.7 cm. This has decreased in size compared to the prior exam. The endometrium measures 5 mm combined thickness. Tiny nabothian cyst at the cervix. Ovaries: The right ovary measures 2.4 x 1.4 x 1.1 cm, with a calculated ovarian volume of 1.9 cc. The left ovary was not seen. There are no dominant follicles in the right ovary. There is appropriate color Doppler flow. No adnexal masses are seen. Other: No pathologic free abdominal or pelvic fluid. IMPRESSION: 1. Large myometrial uterine fibroid, decreased in size compared to the prior exam from 2019. 2. Normal thickness endometrial stripe or visible. 3. Nonvisualization of the left ovary. We strive to produce accurate, complete, and clear reports of imaging services. To assist us in improving patient care, this report was composed using standard report templates and voice recognition software. Therefore, it may contain abnormal punctuation, insertions and/or omissions. Occasional wrong-word or sound-alike substitutions may occur. Though we review the report and make efforts to correct it, we do recommend that the report be read carefully in proper context to recognize any text inaccuracies. Dictated by: Yolanda Sanchez M.D. on 07/11/2023 at 14:52 Approved by: Yolanda Sanchez M.D. on 07/11/2023 at 14:56
== END ==
PROVIDERS: PCP Family Medicine; Referring Provider Family Medicine; Visit Provider Family Medicine
DX: D25.9 Leiomyoma of uterus, unspecified (principal)
CPT/HCPCS: 76830; 76856; 93975

== ENCOUNTER → 2023-09-25 16:27 | Outpatient (CLI) | payer MEDICARE, OTHER, SELFPAY ==
[2023-04-04 14:20] VITALS: BMI 24.7
--- NOTE | 2023-09-25 16:32 | DI.MRI.S_ITS ---
PROCEDURE: MR LUMBAR SPINE WO CON INDICATIONS: Chronic progressive LBP TECHNIQUE: Noncontrast sagittal T1 spin echo and T2 fast echo, sagittal STIR, and T2 fast spin echo through the lumbar spine. In cases with scoliosis, additional coronal T2 fast spin echo may be performed. COMPARISON: Located Within [facility], , L-SPINE WITHOUT CONTRAST, 09/25/2017, 9:18. FINDINGS: Image quality: Excellent. Alignment and Curvature: Trace retrolisthesis of L2 on L3 and of L3 on L4. Bone Marrow: Marrow is of normal overall signal. No acute vertebral body compression fractures. Spinal Cord: Conus medullaris terminates at the L1-L2 level. Visualized cord demonstrates normal signal and size. Paraspinous Soft Tissues: No paravertebral masses. T12-L1: Normal appearance. L1-L2: Minimal disc bulge and facet hypertrophy. No canal stenosis or foraminal stenosis. L2-L3: Development of mild disc height loss. Disc bulge. Facet hypertrophy. No canal stenosis. Moderate right foraminal stenosis with mild flattening deformity on the exiting right L2 nerve root. Mild to moderate left foraminal narrowing. L3-L4: Interval increase in disc height loss. Disc bulge. Facet hypertrophy. Epidural lipomatosis. Borderline canal stenosis. Moderate to severe right foraminal narrowing with flattening deformity on the exiting right L3 nerve root. Moderate left foraminal narrowing with flattening deformity on the exiting left L3 nerve root. L4-L5: Interval progression. Disc bulge. Somewhat prominent facet and ligament hypertrophy. Moderate canal stenosis, underestimated by choice of axial scan plane. Moderate right foraminal narrowing with flattening deformity on the exiting right L4 nerve root. L5-S1: Severe chronic disc height loss, slightly increased. Diffuse disc bulge with chronic superimposed left paracentral disc extrusion with increased impingement on the left S1 nerve root in the left lateral recess. Reference image 14 of axial series 6. No central canal stenosis. No significant foraminal stenosis. IMPRESSION: 1. Findings are progressive at L4-L5 and L5-S1. 2. Multilevel underlying facet arthropathy. 3. At L4-L5, there is moderate canal stenosis, with moderate right foraminal stenosis. 4. At L5-S1, there is a chronic left paracentral disc extrusion with increased impingement on the left S1 nerve root in the left lateral recess. 5. Multilevel foraminal narrowing as described above. Findings include moderate right foraminal narrowing at L2-L3, moderate to severe right foraminal narrowing and moderate left foraminal narrowing at L3-L4, and moderate right foraminal narrowing at L4-L5. Dictated by: Kenneth Dueñas M.D. on 09/26/2023 at 8:50 Approved by: Kenneth Dueñas M.D. on 09/26/2023 at 8:59
== END ==
PROVIDERS: PCP Family Medicine; Referring Provider Physical Medicine & Rehabilitation; Visit Provider Physical Medicine & Rehabilitation
DX: M48.061 Spinal stenosis, lumbar region without neurogenic claudication (principal); M47.816 Spondylosis without myelopathy or radiculopathy, lumbar region; M51.27 Other intervertebral disc displacement, lumbosacral region
CPT/HCPCS: 72148

== ENCOUNTER → 2023-10-03 15:13 | Outpatient (CLI) | payer MEDICARE, OTHER, SELFPAY ==
[2023-04-04 14:20] VITALS: BMI 24.7
[2023-10-03 15:50] LABS: Alanine Aminotransferase 29 IU/L (<35); Albumin 4.4 g/dL (3.5-5.0); Albumin Globulin Ratio 1.6 (1.0-2.8); Alkaline Phosphatase 85 U/L (38-126); Aspartate Aminotransferase 34 IU/L (14-36); BUN Creatinine Ratio 16.8 (6-22); Bilirubin Total 1.1 mg/dL (0.2-1.3); Blood Urea Nitrogen 21 mg/dL (7-17); Calcium 9.8 mg/dL (8.4-10.2); Carbon Dioxide 27 mmol/L (22-32); Chloride 106 mmol/L (98-107); Cholesterol 147 mg/dL (140-199); Estimated Glomerular Filt Rate 48 mL/min (>60); Globulin 2.8 g/dL (1.7-4.1); Glucose 101 mg/dL (80-110); HDL Cholesterol 70 mg/dL (40-60); HEMOLYSIS < 15 (0-50); LDL Cholesterol Calculated 62 mg/dL (<100); Potassium 4.1 mmol/L (3.4-5.1); Sodium 141 mmol/L (137-145); Total Protein 7.2 g/dL (6.3-8.2); Triglycerides 74 mg/dL (35-150)
== END ==
PROVIDERS: PCP Family Medicine; Referring Provider Internal Medicine; Visit Provider Internal Medicine
DX: E78.5 Hyperlipidemia, unspecified (principal)
CPT/HCPCS: 36415; 80053; 80061

== ENCOUNTER 2024-03-11 14:24 | Outpatient (CLI) | payer MEDICARE, OTHER, SELFPAY ==
[2023-10-17 08:59] VITALS: BMI 24.7
[2024-03-11] VITALS (7 sets, daily range): BP systolic 113–138; BP diastolic 57–105; PULSE 73–82; RESP 12–18; TEMP 36.8; O2SAT 98–100
--- NOTE | 2024-03-11 15:00 | DI.RAD.S_ITS ---
PROCEDURE: PAIN L INTERLAMINAR/CAUDAL INJ INDICATIONS: L4/5 TL HANK COMPARISON: None. FINDINGS: Fluoroscopic spot filming was performed to verify placement of spinal needles at the L4-5 level(s), as labeled on the films. Appropriate location(s) of the needle tip(s) was confirmed by injection of iodinated contrast. IMPRESSION: Needle and contrast placement overlying L4-5. Dictated by: Lisha Gurrola M.D. on 03/11/2024 at 17:51 Approved by: Lisha Gurrola M.D. on 03/11/2024 at 17:51
[2024-03-11] MEDS: MIDAZOLAM 2 MG/2 ML VIAL IV (15:14)
[2024-03-11] MEDS: iopamidoL 15 ML VIAL 3 ML INJ (15:17)
[2024-03-11] MEDS: DEXAMETHASONE 10 MG/ML VIAL INJ (15:17)
[2024-03-11] MEDS: BUPIVACAINE 0.25% (PF) VIAL 2 ML INJ (15:17)
[2024-03-11] MEDS: BETAMETHASONE 30 MG/5 ML MDV 6 MG INJ (15:18)
--- NOTE | 2024-03-11 15:29 | P.PCN_ITS ---
Date/Time/Diagnoses Date of procedure: 03/11/24 Time of procedure: 15:29 Pre-procedure diagnosis: 1. HNP WITH RADICULAR FEATURES, 2. MULTILEVEL CENTRAL STENOSIS, Post-procedure diagnosis: same Procedure Notes Procedure: 1. FLUOROSCOPICALLY GUIDED CONTRAST CONTROLLED INTERLAMINAR EPIDURAL STEROID INJECTION -L4/5 Indications: Carey is referred by Dr. Gutierrez for treatment of Bilateral Foraminal Stenosis R>L LE symptoms. Physician: Gerard Petersen Total Fluoroscopy time (seconds): 8 Total sedation minutes: 11 Complications: none Procedure in detail & Post-procedure care: FINDINGS Multilevel Central Spinal Stenosis with Nerve Root Compression DESCRIPTION OF PROCEDURE Fluoroscopically guided, contrast-controlled L4/5 translaminar epidural steroid injection. Following review of allergy and review of potential side effects and complications, including, but not necessarily limited to, infection, allergic reaction, local tissue breakdown, temporary as well as permanent nerve injury, paralysis, stroke and possible , the patient indicated that the patient understood and agreed to proceed. An informed consent document was signed by the patient, witnessed by a nurse, and placed in the patient's chart. Additionally, other treatment options including modalities, medications, and physical therapy were reviewed with the patient. After review of previous anaesthesic history and IV conscious sedation the patient was deemed safe to proceed with today?s procedure with IV conscious sedation as ASA class II designation. Safety time-out was performed to confirm patient ID, procedure to be performed and site of procedure. IV sedation was accomplished with a combination of 2mg of Versed was administered by the RN after DO order, titrated to patient comfort during the course of the procedure while the patient remained responsive to all verbal commands In the prone position, following sterile prep and drape of the lumbar region, the L4/5 translaminar space was identified fluoroscopically. The skin was anesthetized via a 25-gauge, 1.5inch needle with 1% lidocaine solution. At this point, a 22-gauge short bevel spinal needle was atraumatically introduced and advanced under fluoroscopic guidance into the region of the L4/5 translaminar space. Depth was confirmed on lateral view. Radiological data, including multiple fluoroscopic views of the lumbar spine, reveal a spinal needle at the L4/5 translaminar space. Lateral views then show placement of the needle in the epidural space. Subsequent views show contrast material flowing superiorly and inferiorly in the epidural space. No vascular or intrathecal uptake is observed. At this point, using loss of resistance technique with saline and air, the epidural space was entered. This was confirmed following negative aspiration with injection of approximately 1.5cc of Isovue 200, showing excellent epidural flow without vascular or intrathecal uptake. At this point, 1cc of 1% lidocaine solution combined with 2cc or 10mg of dexamethasone and 6mg betamethasone was injected without incident. The patient tolerated the procedure well without signs or symptoms of complications prior to transfer to the recovery area continued monitoring without incident. The patient was then transferred to the recovery area where they were observed for an appropriate period of time after the injection. The patient reported a VAS score of 6 prior to the procedure and a post- procedure VAS of 0. POST OP INSTRUCTIONS The patient was provided a Pain Log to continue to record their response to the target-specific procedure prior to follow-up visit with their referring physician. Additionally, specific post-injection care instructions and a contact number to our office were provided if concerns arise regarding possible complications associated with the procedure are suspected.
== END 2024-03-11 15:45 | disposition home or self-care (01) ==
PROVIDERS: PCP Family Medicine; Referring Provider Physical Medicine & Rehabilitation; Visit Provider Physical Medicine & Rehabilitation
DX: M51.16 Intervertebral disc disorders with radiculopathy, lumbar region (principal); M48.061 Spinal stenosis, lumbar region without neurogenic claudication
CPT/HCPCS: 62323; 99152; J0702; J1100; J2250; J3490

== ENCOUNTER 2024-07-30 15:49 | Emergency (ER) | payer MEDICARE, OTHER, SELFPAY ==
[2023-10-17 08:59] VITALS: BMI 24.7
[2024-07-30 15:53] VITALS: BP 123/86; PULSE 84; RESP 18; TEMP 36.6; O2SAT 98; BMI 26.6
--- NOTE | 2024-07-30 15:57 | DI.RAD.S_ITS ---
PROCEDURE: XR HIP W PEL IF DONE LT 2V INDICATIONS: fall 2 weeks ago/still painful TECHNIQUE: AP pelvis with lateral view(s) of the left hip(s). COMPARISON: None. FINDINGS: Bones: No fractures or dislocations. Pelvic ring appears intact. Bilateral hip joint osteoarthritic changes are seen. No evidence of avascular necrosis of femoral head. No suspicious bony lesions. Soft tissues: The visualized bowel gas pattern is normal. No suspicious soft tissue calcifications. IMPRESSION: No acute left hip fracture or dislocation. Dictated by: Bhavesh Alonso M.D. on 07/30/2024 at 16:25 Approved by: Bhavesh Alonso M.D. on 07/30/2024 at 16:28
--- NOTE | 2024-07-30 15:57 | DI.RAD.S_ITS ---
PROCEDURE: XR WRIST LT MIN 3V INDICATIONS: fall 2 weeks ago/still painful TECHNIQUE: 3 views of the wrist were acquired. COMPARISON: None. FINDINGS: Bones: Cortical irregularity involving dorsal cortex of distal radius is seen concerning for subtle nondisplaced fracture in this area. No other fracture or dislocation. No suspicious bony lesions. Soft tissues: No suspicious soft tissue calcifications. IMPRESSION: Finding is concerning for subtle nondisplaced fracture involving dorsal aspect of distal radius only seen on lateral view. No other fracture or dislocation. Dictated by: Bhavesh Alonso M.D. on 07/30/2024 at 16:28 Approved by: Bhavesh Alonso M.D. on 07/30/2024 at 16:29
--- NOTE | 2024-07-30 16:20 | ED_ITS ---
<Statement entered by Christian Padgett DO - 07/30/24 17:41> Dr. Padgett: I was immediately available in the department for consultation. Documentation has been reviewed. I agree with assessment and plan. HPI - Fall General Chief Complaint: Fall Stated Complaint: lt wrist and hip pain, fell t-two weeks Time Seen by Provider: 07/30/24 16:19 Source: patient Mode of arrival: Ambulatory History of Present Illness HPI Narrative: 68-year-old female presents with left wrist and left lower back buttock pain following a mechanical fall that occurred 2 weeks ago. She was at an event and the chairs apparently had wheels the chair gave out she fell off the chair did not demonstrating a FOOSH landing on her buttocks. She was doing some [id number] back patches with no relief, she has tried no ice or heat, she is right-handed dominant. She points to the dorsal wrist where she is having some discomfort when she extends, and her left hip region if she presses on the buttock. She has had no disruption during sleep, there were no precipitating events, she did not strike her head there was no loss of consciousness. She does have early onset Parkinson's in his on levodopa but reports no functional deficits at this point. All other systems are reviewed and are negative. Related Data Home Medications Medication Instructions Recorded Confirmed rosuvastatin 40 mg tablet (Crestor) 40 mg PO DAILY 11/14/21 06/04/24 metoprolol succinate 25 mg 25 mg PO DAILY Multiple cardiac 02/09/23 06/04/24 tablet,extended release 24 hr sacubitril 49 mg-valsartan 51 mg 1 tab PO BID Multiple cardiac 02/09/23 06/04/24 tablet (Entresto) issues empagliflozin 10 mg tablet 10 mg PO DAILY 02/19/23 06/04/24 (Jardiance) carbidopa 25 mg-levodopa 100 mg 1 tab PO BEDTIME 02/11/24 06/04/24 tablet Previous Rx's Medication Instructions Recorded aspirin 81 mg tablet,delayed 81 mg PO DAILY #30 tabs 06/23/21 release cyclobenzaprine 10 mg tablet 10 mg PO BID PRN muscle spasm #60 04/09/23 tabs tramadol 50 mg tablet 50 mg PO TID PRN pain #30 tabs 07/17/23 valacyclovir 1 gram tablet 2,000 mg (2 x 1 gram) PO BID #4 07/17/23 (Valtrex) tabs estradiol 10 mcg vaginal tablet 10 mcg vaginal .COMPLEX #60 tabs 09/19/23 (Yuvafem) Allergies Allergy/AdvReac Type Severity Reaction Status Date / Time levofloxacin [LEVOFLOXACIN] AdvReac Intermediate BAD DREAMS Verified 06/04/24 15:03 AND JOINT PAIN narcotics AdvReac Severe vertigo, Uncoded 06/04/24 15:03 nausea, vomiting Patient History Medical History Parkinson disease, symptomatic 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, unspecified Impingement syndrome of right shoulder Cervical myelopathy with cervical radiculopathy CHF (congestive heart failure) Sensory disturbance LBBB (left bundle branch block) Overweight Impaired fasting glucose History of endometrial biopsy (~2012) Hormone replacement therapy Dyspareunia (07/25/12) Lumbosacral spondylosis Foraminal stenosis of lumbar region Facet arthropathy, lumbar Foot pain (~2015) Eczema (~2011) Mumps Chickenpox Tinnitus HSV (herpes simplex virus) infection (~1977) Fibroids Cardiac arrhythmia (~2013) Diarrhea (05/04/16) Surgical History Anesthesia Status post delivery (03/15/98) Family History Father Age: 88 Heart disease Dementia Hx of CABG Grandmother No problems noted. Grandmother No problems noted. Social History household members: spouse and none Smoking Status: Never smoker Smoking Status: Never smoker alcohol intake frequency: holidays/special occasions only Substance Use Type: does not use Exam Initial Vital Signs Initial Vital Signs: Vital Signs Temperature 98 F 07/30/24 15:53 Pulse Rate 84 07/30/24 15:53 Respiratory Rate 18 07/30/24 15:53 Blood Pressure 123/86 07/30/24 15:53 Pulse Oximetry 98 07/30/24 15:53 Oxygen Delivery Method Room Air 07/30/24 15:53 Const Other: Smiling, seated, no distress. Alert and oriented x4. Resp Effort & Inspection: normal respiratory effort Auscultation: clear to auscultation bilaterally, no rales, no rhonchi and no wheezes Cardio Rate: regular rate Rhythm: regular rhythm Back/Spine/Pelvis Other: No swelling, discoloration or breaks in the skin. No focal bony midline tenderness throughout the entire spine. Focal tenderness on the left inferior buttock and SI joint. Full active range of motion to the back, no guarding. Skin Other: No discoloration, normal color, turgor, temperature. Extrem Left upper extremity: normal to inspection, full ROM, no joint enlargement and wrist Details: normal to inspection, tenderness Location: of the dorsal wrist; not of the anatomic snuffbox and normal ROM (Pain with wrist extension); no swelling, no ecchymosis and no crepitus Left lower extremity: normal to inspection, full ROM and hip/thigh Details: normal to inspection, tenderness (Left buttock, posterior hip, no guarding) and normal ROM; no cyanosis and joint enlargement noted Other: Pelvic rock is normal. Pinch mechanism, ulnar, radial, median nerve are grossly intact of the left hand. Procedures Orthopedic Splinting/Casting Injury #1: Upper Extremity Injury Location: wrist (Thumb spica Velcro applied) Post splinting neuro exam: intact Post splinting vascular exam: intact Placed by: Nursing Additional Comments: She feels comfortable. Course Orders Ordered: ED Orders 07/30/24 15:57 XR hip w pel if done LT 2V Stat XR wrist LT min 3V Stat Vital Signs Vital signs: Vital Signs - 8 hr 07/30/24 15:53 Temperature 98 F Pulse Rate 84 Respiratory Rate 18 Blood Pressure 123/86 Pulse Oximetry 98 Oxygen Delivery Method Room Air Vital signs reviewed and are normal. MDM - Fall Imaging Data Extremity x-ray #1: My Impression: Subtle nondisplaced distal radius fracture seen on the lateral view, deferred to radiology interpretation below. Radiologist's Impression: PROCEDURE: XR WRIST LT MIN 3V INDICATIONS: fall 2 weeks ago/still painful TECHNIQUE: 3 views of the wrist were acquired. COMPARISON: None. FINDINGS: Bones: Cortical irregularity involving dorsal cortex of distal radius is seen concerning for subtle nondisplaced fracture in this area. No other fracture or dislocation. No suspicious bony lesions. Soft tissues: No suspicious soft tissue calcifications. IMPRESSION: Finding is concerning for subtle nondisplaced fracture involving dorsal aspect of distal radius only seen on lateral view. No other fracture or dislocation. Dictated by: Bhavesh Alonso M.D. on 07/30/2024 at 16:28 Approved by: Bhavesh Alonso M.D. on 07/30/2024 at 16:29 Extremity x-ray #2: My Impression: Deferred to radiology interpretation below. Radiologist's Impression: PROCEDURE: XR HIP W PEL IF DONE LT 2V INDICATIONS: fall 2 weeks ago/still painful TECHNIQUE: AP pelvis with lateral view(s) of the left hip(s). COMPARISON: None. FINDINGS: Bones: No fractures or dislocations. Pelvic ring appears intact. Bilateral hip joint osteoarthritic changes are seen. No evidence of avascular necrosis of femoral head. No suspicious bony lesions. Soft tissues: The visualized bowel gas pattern is normal. No suspicious soft tissue calcifications. IMPRESSION: No acute left hip fracture or dislocation. Dictated by: Bhavesh Alonso M.D. on 07/30/2024 at 16:25 Approved by: Bhavesh Alonso M.D. on 07/30/2024 at 16:28 [facility] Narrative Medical decision making narrative: Subtle nondisplaced distal radius fracture, this coincides with her dorsal wrist focal tenderness, she still has good ROM. She is splinted with a Velcro thumb spica. Advised to keep it on at all times however. I have referred her to orthopedics for follow up. Regarding her hip she has full range of motion, full weightbear, x-rays are negative, so most likely soft tissue injury with associated muscle strain or sprain. Discussed use of ice, Tylenol, alternate heat, follow up with her PCP. Red flag warning signs reviewed in detail. Guard against fall, seek medical attention if anything worsens or she develops any new worrisome symptoms. She apparently is already established with Dr. Petersen's an orthopedist who has worked on her shoulder in the past so she may wish to contact their office in the morning due to her pain, continuity of care is ideal, I listed the current on-call for today as an alternative. Discharge Plan Departure Patient Disposition: Home Clinical Impression: Distal radius fracture, left Qualifiers: Encounter type: initial encounter Fracture type: closed Fracture morphology: unspecified fracture morphology Qualified Code(s): S52.502A - Unspecified fracture of the lower end of left radius, initial encounter for closed fracture Contusion of hip, left Qualifiers: Encounter type: initial encounter Qualified Code(s): S70.02XA - Contusion of left hip, initial encounter Instructions: DI for Contusion, DI for Distal Radius Fracture Activity Restrictions/Additional Instructions: Please wear the splint at all times. You may remove for showering but use caution as this can delay healing. I have referred you to Orthopedics, contact the office for follow up appointment within the next 1-2 weeks. Advised that you were seen in the emergency department. You may use Tylenol for pain, please do ice your hip, you may ice directly over the splint, alternate heat, guard against fall, please return to the emergency department if you have any new worrisome symptoms or worsening symptoms. Anticipate gradual improvement on both of her injuries. I have listed an orthopedic surgeon from [facility], they may be reached at [phone]. Prescriptions: No Action rosuvastatin [Crestor] 40 mg tablet 40 mg PO DAILY Hold Instructions: abnormal lft Patient Comments: Managed by operations manager/coordinator tramadol 50 mg tablet 50 mg PO TID PRN (Reason: pain) Qty: 30 1RF valacyclovir [Valtrex] 1 gram tablet 2,000 mg PO BID Qty: 4 9RF Entresto 49-51 mg tablet 1 tab PO BID Patient Comments: Left descending bundle branch, blockage metoprolol succinate 25 mg tablet extended release 24 hr 25 mg PO DAILY estradiol [Yuvafem] 10 mcg tablet 10 mcg VAG .COMPLEX Qty: 60 3RF Rx Instructions: 10 mcg vaginal 2-3 times weekly; aspirin 81 mg Tablet,Delayed Release (Dr/Ec) 81 mg PO DAILY Qty: 30 0RF Jardiance 10 mg tablet 10 mg PO DAILY carbidopa-levodopa 25-100 mg tablet 1 tab PO BEDTIME cyclobenzaprine 10 mg tablet 10 mg PO BID PRN (Reason: muscle spasm) Qty: 60 1RF Referrals: Sherry Anna MD [Physician] - 10-14 days (Closed nondisplaced distal radius fracture status post fall 2 weeks ago.) Paul Gutierrez DO [Primary Care Provider] - Stand Alone Forms: Patient Portal/API
[2024-07-30 17:20] VITALS: BP 136/77; PULSE 98; RESP 14
[2024-07-30 17:25] VITALS: BP 136/77; PULSE 69; RESP 14; O2SAT 98
== END 2024-07-30 17:26 | disposition home or self-care (01) ==
PROVIDERS: Emergency Provider Physician Assistant Medical; PCP Family Medicine
DX: S52.502A Unspecified fracture of the lower end of left radius, initial encounter for closed fracture (principal); S70.02XA Contusion of left hip, initial encounter; M54.50 Low back pain, unspecified; W07.XXXA Fall from chair, initial encounter
CPT/HCPCS: 73110; 73502; 99283

== ENCOUNTER → 2024-08-06 10:26 | Outpatient (CLI) | payer MEDICARE, OTHER, SELFPAY ==
[2023-10-17 08:59] VITALS: BMI 24.7
--- NOTE | 2024-08-06 10:28 | DI.RAD.S_ITS ---
PROCEDURE: XR LUMBAR SPINE 2-3V INDICATIONS: pain, fell about 10 days ago TECHNIQUE: 3 views of the lumbar spine were acquired. COMPARISON: [facility], CR, XR LUMBAR SPINE MIN 4V, 05/24/2021, 13:39. FINDINGS: Bones: 5 [id number] vertebrae are present. Mild retrolisthesis of L2 on L3 and L3 on L4.. No vertebral body compression fractures. No suspicious bony lesions. There is multilevel facet arthropathy, worse at L4-5 and L5-S1. Multilevel disc height loss with degenerative endplate changes and spurring is present. This is severe at L5-S1. Soft tissues: Overlying bowel gas pattern is normal. No suspicious soft tissue calcifications. IMPRESSION: Multilevel degenerative changes of the lumbar spine, severe at L5-S1. No vertebral body compression deformities. Dictated by: Jeremías Ghosh M.D. on 08/06/2024 at 13:18 Approved by: Jeremías Ghosh M.D. on 08/06/2024 at 13:24
== END ==
LOC: RAD 10:28
PROVIDERS: PCP Family Medicine; Referring Provider Family Medicine; Visit Provider Family Medicine
DX: M47.816 Spondylosis without myelopathy or radiculopathy, lumbar region (principal); M47.817 Spondylosis without myelopathy or radiculopathy, lumbosacral region; M54.50 Low back pain, unspecified
CPT/HCPCS: 72100

== ENCOUNTER → 2024-11-07 14:53 | Outpatient (CLI) | payer MEDICARE, OTHER, SELFPAY ==
[2023-10-17 08:59] VITALS: BMI 24.7
[2024-11-07 16:43] LABS: Add Manual Diff / Slide Review NO; Basophils Absolute Auto 100 /uL (0-100); Eosinophils Absolute Auto 200 /uL (0-450); Hematocrit 41.5 % (36-46); Hemoglobin 13.7 g/dL (12.0-16.0); Lymphocytes Absolute Auto 1500 /uL (1100-4500); Lymphocytes Percent Auto 25.3 % (25-40); Mean Corpuscular Hemoglobin 30.6 PG (26-34); Mean Corpuscular Volume 92.8 fL (80-100); Monocytes Absolute Auto 600 /uL (0-900); Monocytes Percent Auto 9.6 % (3-14); Neutrophils Absolute Auto 3600 /uL (1500-7000); Neutrophils Percent Auto 61.1 % (50-75); Platelet Count 248 X10^3/uL (150-400); Red Blood Cell Count 4.47 X10^6/uL (4.0-5.2); Red Cell Distribution Width 13.2 % (11.6-14.8); White Blood Cell Count 5.8 X10^3/uL (4.5-11.0)
[2024-11-07 17:17] LABS: Hemoglobin A1C% w Est Avg Glu 4.7 % (4.0-6.0)
[2024-11-07 17:19] LABS: BUN Creatinine Ratio 15.7 (6-22); Blood Urea Nitrogen 24 mg/dL (7-17); Calcium 9.5 mg/dL (8.4-10.2); Carbon Dioxide 27 mmol/L (22-32); Chloride 109 mmol/L (98-107); Estimated Glomerular Filt Rate 37 mL/min (>60); Glucose 90 mg/dL (80-110); HEMOLYSIS < 15 (0-50); Potassium 4.2 mmol/L (3.4-5.1); Sodium 141 mmol/L (137-145)
== END ==
PROVIDERS: PCP Family Medicine; Referring Provider Family Medicine; Visit Provider Family Medicine
DX: I50.9 Heart failure, unspecified (principal); G20.A1 Parkinson's disease without dyskinesia, without mention of fluctuations; N18.30 Chronic kidney disease, stage 3 unspecified
CPT/HCPCS: 36415; 80048; 83036; 85025

== ENCOUNTER → 2024-11-11 16:23 | Outpatient (CLI) | payer MEDICARE, OTHER, SELFPAY ==
[2023-10-17 08:59] VITALS: BMI 24.7
[2024-11-11 17:32] LABS: Creatinine Urine Random 203.52 mg/dL
[2024-11-11 18:03] LABS: Microalbumin Urine Random 47.2 mg/dL (0-1.6)
== END ==
PROVIDERS: PCP Family Medicine; Referring Provider Family Medicine; Visit Provider Family Medicine
DX: I50.9 Heart failure, unspecified (principal); G20.A1 Parkinson's disease without dyskinesia, without mention of fluctuations; N18.30 Chronic kidney disease, stage 3 unspecified
CPT/HCPCS: 82043; 82570

== ENCOUNTER → 2024-11-25 15:17 | Outpatient (CLI) | payer MEDICARE, OTHER, SELFPAY ==
[2023-10-17 08:59] VITALS: BMI 24.7
--- NOTE | 2024-11-25 15:18 | DI.MG.S_ITS ---
BILATERAL DIGITAL SCREENING MAMMOGRAM 3D/2D WITH CAD: 11/25/2024 CLINICAL: Routine screening. Family history of breast cancer. Comparison is made to exams dated: 07/04/2023 mammogram, 09/10/2020 mammogram, and 07/24/[address] [facility]. There are scattered areas of fibroglandular density (category b / 25%-50% glandular tissue). Current study was also evaluated with a Computer Aided Detection (CAD) system. No significant masses, calcifications, or other findings are seen in either breast. There has been no significant interval change. IMPRESSION: NEGATIVE There is no mammographic evidence of malignancy. A 1 year screening mammogram is recommended. Based on the Tyrer Cuzick model (a risk assessment model) the patient's lifetime risk is 9.2% and her 10 year risk is 4.9%. According to the ACR, ACS, and NCCN guidelines, an annual breast MRI exam along with mammogram is recommended if the patient's lifetime risk is 20% or greater. This exam was interpreted at Station ID: [id number]. NOTE: For mammograms, a report in lay terms will be sent to the patient. Approximately 15% of breast malignancies will not be visualized mammographically. In the management of a palpable breast mass, a negative mammogram must not discourage biopsy of a clinically suspicious lesion. Electronically Signed By: Agnes Garza M.D., Ph.D. alaina/manish:11/25/2024 16:11:20 letter sent: Normal Exam ACR BI-RADS Category 1: Negative
== END ==
PROVIDERS: PCP Family Medicine; Referring Provider Family Medicine; Visit Provider Family Medicine
DX: Z12.31 Encounter for screening mammogram for malignant neoplasm of breast (principal); Z80.3 Family history of malignant neoplasm of breast
CPT/HCPCS: 77063; 77067

== ENCOUNTER → 2025-02-05 14:14 | Outpatient (CLI) | payer MEDICARE, OTHER, SELFPAY ==
[2023-10-17 08:59] VITALS: BMI 24.7
[2025-02-05 15:28] LABS: Hematocrit 39.9 % (36-46); Hemoglobin 13.4 g/dL (12.0-16.0)
[2025-02-05 15:46] LABS: BUN Creatinine Ratio 11.1 (6-22); Blood Urea Nitrogen 19 mg/dL (7-17); Calcium 9.3 mg/dL (8.4-10.2); Carbon Dioxide 22 mmol/L (22-32); Chloride 111 mmol/L (98-107); Estimated Glomerular Filt Rate 32 mL/min (>60); Glucose 93 mg/dL (70-99); HEMOLYSIS < 15 (0-50); Sodium 141 mmol/L (137-145)
== END ==
PROVIDERS: PCP Family Medicine; Referring Provider Student in an Organized Health Care Education/Training Program; Visit Provider Student in an Organized Health Care Education/Training Program
DX: N05.9 Unspecified nephritic syndrome with unspecified morphologic changes (principal); D70.9 Neutropenia, unspecified; D63.1 Anemia in chronic kidney disease; R80.9 Proteinuria, unspecified
CPT/HCPCS: 36415; 80048; 85014; 85018

== ENCOUNTER → 2025-02-06 13:53 | Outpatient (CLI) | payer MEDICARE, OTHER, SELFPAY ==
[2023-10-17 08:59] VITALS: BMI 24.7
[2025-02-06 15:14] LABS: Creatinine Urine Random 121.53 mg/dL
[2025-02-06 15:22] LABS: Protein (Total) Urine Random 271 mg/dL (0-12); Protein Creatinine Ratio Urine 2.22 GRAM/24H
== END ==
PROVIDERS: PCP Family Medicine; Referring Provider Student in an Organized Health Care Education/Training Program; Visit Provider Student in an Organized Health Care Education/Training Program
DX: R80.9 Proteinuria, unspecified (principal)
CPT/HCPCS: 82570; 84156

== ENCOUNTER → 2025-02-13 14:14 | Outpatient (CLI) | payer MEDICARE, OTHER, SELFPAY ==
[2023-10-17 08:59] VITALS: BMI 24.7
[2025-02-14 02:36] LABS: Hepatitis B Surf AB Quant <3.5 mIU/mL (Immunity>10)
[2025-02-14 04:10] LABS: Hepatitis B Core Antibody Negative (Negative)
[2025-02-14 06:09] LABS: Complement C3 92 mg/dL (82-167)
[2025-02-14 15:17] LABS: Hepatitis B Surface Antigen NEGATIVE s/c (NEGATIVE)
[2025-02-14 15:38] LABS: Hep C Virus Ab w/Reflex Quant NEGATIVE s/c (NEGATIVE)
[2025-02-14 18:38] LABS: DNA (DS) Antibody <1 IU/mL (0-9)
== END ==
PROVIDERS: PCP Family Medicine; Referring Provider Student in an Organized Health Care Education/Training Program; Visit Provider Student in an Organized Health Care Education/Training Program
DX: L93.2 Other local lupus erythematosus (principal); M31.30 Wegener's granulomatosis without renal involvement; M32.10 Systemic lupus erythematosus, organ or system involvement unspecified; N00.9 Acute nephritic syndrome with unspecified morphologic changes; D89.89 Other specified disorders involving the immune mechanism, not elsewhere classified; B19.10 Unspecified viral hepatitis B without hepatic coma; B17.10 Acute hepatitis C without hepatic coma; R80.9 Proteinuria, unspecified; D47.2 Monoclonal gammopathy
CPT/HCPCS: 36415; 83516; 83883; 84155; 84165; 86038; 86160; 86225; 86256; 86704; 86706; 86803; 87340

== ENCOUNTER → 2025-02-18 15:02 | Outpatient (CLI) | payer MEDICARE, OTHER, SELFPAY ==
[2023-10-17 08:59] VITALS: BMI 24.7
--- NOTE | 2025-02-18 | DI.US.S_ITS ---
PROCEDURE: US RENAL COMPLETE INDICATIONS: STAGE 3B CKD TECHNIQUE: Real-time scanning was performed of the kidneys and bladder, with image documentation. COMPARISON: None. FINDINGS: Kidneys: Kidneys are normal in size. Right kidney measures 10.3 cm long; left kidney measures 9.9 cm long. Right renal cortical thickness is 0.6 cm; left renal cortical thickness is 0.6 cm. No hydronephrosis or nephrolithiasis. No solid appearing renal lesions. Simple appearing bilateral peripelvic renal cysts and renal cortical cysts are seen measures up to 1.6 x 2.1 x 1.4 cm in size in midpole right kidney and 1.8 x 2 x 1.5 cm in size in lower pole left kidney. Bladder: Pre-void bladder volume is 45 mL. Post-void residual is 1 mL. Pre-void images demonstrate no intraluminal masses or stones. On pre-void images, no ureteral jets are noted with color Doppler interrogation. (Of note, ureteral jets may not be detectable in up to 25% of cases due to insufficient differences in specific gravity between ureteral and bladder urine). Miscellaneous: No free pelvic fluid. IMPRESSION: 1. Cortical thinning in bilateral kidneys which may be related to medical renal disease. No solid appearing renal lesion. Bilateral simple appearing cortical and peripelvic renal cysts as above. No hydronephrosis or nephrolithiasis. 2. No gross abnormality is seen in partially distended urinary bladder. Dictated by: Bhavesh Alonso M.D. on 02/18/2025 at 16:29 Approved by: Bhavesh Alonso M.D. on 02/18/2025 at 16:32
== END ==
LOC: US 15:05
PROVIDERS: PCP Family Medicine; Referring Provider Student in an Organized Health Care Education/Training Program; Visit Provider Student in an Organized Health Care Education/Training Program
DX: N18.32 Chronic kidney disease, stage 3b (principal); N28.1 Cyst of kidney, acquired
CPT/HCPCS: 76770

== ENCOUNTER → 2025-03-16 15:42 | Outpatient (CLI) | payer MEDICARE, OTHER, SELFPAY ==
[2023-10-17 08:59] VITALS: BMI 24.7
[2025-03-16 16:12] LABS: Hematocrit 39.9 % (36-46); Hemoglobin 13.4 g/dL (12.0-16.0)
[2025-03-16 16:16] LABS: Appearance Urine UA CLOUDY; Bilirubin Urine UA NEGATIVE (NEGATIVE); Color Urine UA YELLOW; Glucose Urine UA NEGATIVE (Negative); Ketones Urine UA NEGATIVE (NEGATIVE); Leukocyte Esterase Urine UA TRACE (NEGATIVE); Nitrite Urine UA POSITIVE (Negative); Occult Blood Urine UA 2+ (Negative); Protein Urine UA 3+ (Negative); Specific Gravity Urine UA >=1.030 (1.000-1.035)
[2025-03-16 16:19] LABS: pH Urine UA 5.5 (4.5-8.0)
[2025-03-16 16:21] LABS: Bacteria Urine Many (>30); Culture Indicated Urine Specimen Cultured; RBC Urine 0-1/HPF (0-5/HPF); Squamous Epithelial Cell Urine 10-30 /HPF (0-5/HPF); Urine Volume 10mL (spun); WBC Urine 10-30/HPF (0-5/HPF)
[2025-03-16 16:33] LABS: Blood Urea Nitrogen 27 mg/dL (7-17); Calcium 9.3 mg/dL (8.4-10.2); Carbon Dioxide 24 mmol/L (22-32); Chloride 110 mmol/L (98-107); Estimated Glomerular Filt Rate 30 mL/min (>60); Glucose 95 mg/dL (70-99); HEMOLYSIS < 15 (0-50); Phosphorous 3.4 mg/dL (2.8-4.1); Potassium 3.9 mmol/L (3.4-5.1); Sodium 143 mmol/L (137-145)
[2025-03-16 16:47] LABS: Creatinine Urine Random 312.09 mg/dL
[2025-03-16 17:01] LABS: Protein (Total) Urine Random 388 mg/dL (0-12); Protein Creatinine Ratio Urine 1.24 GRAM/24H
[2025-03-18 07:09] LABS: Parathyroid Hormone Int 60 pg/mL (15-65)
== END ==
PROVIDERS: PCP Family Medicine; Referring Provider Student in an Organized Health Care Education/Training Program; Visit Provider Student in an Organized Health Care Education/Training Program
DX: N05.9 Unspecified nephritic syndrome with unspecified morphologic changes (principal); D70.9 Neutropenia, unspecified; D63.1 Anemia in chronic kidney disease; E83.30 Disorder of phosphorus metabolism, unspecified; N25.81 Secondary hyperparathyroidism of renal origin; N30.00 Acute cystitis without hematuria; R80.9 Proteinuria, unspecified
CPT/HCPCS: 36415; 80048; 81001; 82570; 83970; 84100; 84156; 85014; 85018; 87077; 87086; 87186

== ENCOUNTER → 2025-05-15 16:00 | Outpatient (CLI) | payer MEDICARE, OTHER, SELFPAY ==
[2023-10-17 08:59] VITALS: BMI 24.7
[2025-05-15 16:43] LABS: Hematocrit 40.2 % (36-46); Hemoglobin 13.3 g/dL (12.0-16.0)
[2025-05-15 16:50] LABS: Blood Urea Nitrogen 22 mg/dL (7-17); Calcium 9.4 mg/dL (8.4-10.2); Carbon Dioxide 23 mmol/L (22-32); Chloride 110 mmol/L (98-107); Estimated Glomerular Filt Rate 40 mL/min (>60); Glucose 107 mg/dL (70-99); HEMOLYSIS < 15 (0-50); Potassium 4.3 mmol/L (3.4-5.1); Sodium 141 mmol/L (137-145)
[2025-05-16 15:47] LABS: Hep C Virus Ab w/Reflex Quant NEGATIVE s/c (NEGATIVE)
== END ==
PROVIDERS: PCP Family Medicine; Referring Provider Student in an Organized Health Care Education/Training Program; Visit Provider Student in an Organized Health Care Education/Training Program
DX: D70.9 Neutropenia, unspecified (principal); N05.9 Unspecified nephritic syndrome with unspecified morphologic changes; R80.9 Proteinuria, unspecified; N25.81 Secondary hyperparathyroidism of renal origin; D63.1 Anemia in chronic kidney disease
CPT/HCPCS: 36415; 80048; 83970; 85014; 85018; 86803

== ENCOUNTER → 2025-05-16 16:08 | Outpatient (CLI) | payer MEDICARE, OTHER, SELFPAY ==
[2023-10-17 08:59] VITALS: BMI 24.7
[2025-05-16 16:54] LABS: Protein (Total) Urine Random 136 mg/dL (0-12); Protein Creatinine Ratio Urine 1.47 GRAM/24H
== END ==
PROVIDERS: PCP Family Medicine; Referring Provider Student in an Organized Health Care Education/Training Program; Visit Provider Student in an Organized Health Care Education/Training Program
DX: N18.32 Chronic kidney disease, stage 3b (principal)
CPT/HCPCS: 82570; 84156

== ENCOUNTER → 2025-05-27 12:17 | Outpatient (CLI) | payer MEDICARE, OTHER, SELFPAY ==
[2023-10-17 08:59] VITALS: BMI 24.7
[2025-05-27 13:16] LABS: Hemoglobin A1C% w Est Avg Glu 5.0 % (4.0-6.0)
[2025-05-27 13:17] LABS: Albumin 4.5 g/dL (3.5-5.0); Blood Urea Nitrogen 17 mg/dL (7-17); Calcium 9.5 mg/dL (8.4-10.2); Carbon Dioxide 23 mmol/L (22-32); Chloride 108 mmol/L (98-107); Estimated Glomerular Filt Rate 39 mL/min (>60); Glucose 91 mg/dL (70-99); HEMOLYSIS < 15 (0-50); Phosphorous 3.2 mg/dL (2.8-4.1); Potassium 4.2 mmol/L (3.4-5.1); Sodium 140 mmol/L (137-145)
[2025-05-27 16:25] LABS: Protein (Total) Urine Random 455 mg/dL (0-12); Protein Creatinine Ratio Urine 1.49 GRAM/24H
== END ==
PROVIDERS: PCP Family Medicine; Referring Provider Student in an Organized Health Care Education/Training Program; Visit Provider Student in an Organized Health Care Education/Training Program
DX: N18.32 Chronic kidney disease, stage 3b (principal)
CPT/HCPCS: 36415; 80069; 82570; 83036; 83970; 84156

== ENCOUNTER → 2025-08-06 16:05 | Outpatient (CLI) | payer MEDICARE, OTHER, SELFPAY ==
[2023-10-17 08:59] VITALS: BMI 24.7
[2025-08-06 18:51] LABS: Blood Urea Nitrogen 19 mg/dL (7-17); Calcium 9.4 mg/dL (8.4-10.2); Carbon Dioxide 26 mmol/L (22-32); Chloride 107 mmol/L (98-107); Estimated Glomerular Filt Rate 38 mL/min (>60); Glucose 88 mg/dL (70-99); HEMOLYSIS < 15 (0-50); Potassium 4.1 mmol/L (3.4-5.1); Sodium 140 mmol/L (137-145)
[2025-08-06 19:08] LABS: Protein (Total) Urine Random 401 mg/dL (0-12)
[2025-08-06 19:09] LABS: Protein Creatinine Ratio Urine 1.73 GRAM/24H
== END ==
PROVIDERS: PCP Family Medicine; Referring Provider Student in an Organized Health Care Education/Training Program; Visit Provider Student in an Organized Health Care Education/Training Program
DX: N05.9 Unspecified nephritic syndrome with unspecified morphologic changes (principal); R80.9 Proteinuria, unspecified; Z12.11 Encounter for screening for malignant neoplasm of colon
CPT/HCPCS: 36415; 80048; 82274; 82570; 84156

== ENCOUNTER → 2025-09-12 11:35 | Outpatient (CLI) | payer MEDICARE, OTHER, SELFPAY ==
[2023-10-17 08:59] VITALS: BMI 24.7
[2025-09-12 13:16] LABS: Hematocrit 39.8 % (36-46); Hemoglobin 13.4 g/dL (12.0-16.0)
[2025-09-12 14:19] LABS: Blood Urea Nitrogen 25 mg/dL (7-17); Calcium 9.7 mg/dL (8.4-10.2); Carbon Dioxide 29 mmol/L (22-32); Chloride 106 mmol/L (98-107); Estimated Glomerular Filt Rate 41 mL/min (>60); Glucose 95 mg/dL (70-99); HEMOLYSIS < 15 (0-50); Potassium 4.1 mmol/L (3.4-5.1); Sodium 142 mmol/L (137-145)
[2025-09-12 14:19] LABS: Protein (Total) Urine Random 114 mg/dL (0-12); Protein Creatinine Ratio Urine 0.40 GRAM/24H
== END ==
PROVIDERS: PCP Family Medicine; Referring Provider Student in an Organized Health Care Education/Training Program; Visit Provider Student in an Organized Health Care Education/Training Program
DX: D70.9 Neutropenia, unspecified (principal); D63.1 Anemia in chronic kidney disease; N05.9 Unspecified nephritic syndrome with unspecified morphologic changes; N25.81 Secondary hyperparathyroidism of renal origin
CPT/HCPCS: 36415; 80048; 82570; 83970; 84156; 85014; 85018